=== PATIENT | male | born 1975 | race Two or more races ===

== ENCOUNTER 2020-02-27 04:26 | Inpatient (IN) | payer OTHER ==
[~2020-02-27] VITALS: Ht 175.3 cm; Wt 99.0 kg
[2020-02-27 07:52] LABS: Basophils # (auto) 0.1 10 ^3/uL (0-0.2); Basophils % (auto) 0.8 % (0.0-2.0); Eosinophils # (auto) 0.1 10 ^3/uL (0-0.8); Eosinophils % (auto) 1.1 % (0.0-7.0); Hematocrit 46.5 % (41.0-53.0); Hemoglobin 15.7 g/dL (13.5-17.5); Lymphocytes # (auto) 2.3 10 ^3/uL (0.4-5.4); Lymphocytes % (auto) 31.3 % (10.0-50.0); Mean Corpuscular Hemoglobin 29.4 pg (28.0-32.0); Mean Corpuscular Hgb Conc. 33.9 g/dL (32.0-36.0); Mean Corpuscular Volume 86.7 fL (80.0-100.0); Monocytes # (auto) 0.4 10 ^3/uL (0-1.3); Monocytes % (auto) 5.8 % (0.0-12.0); Neutrophils # (auto) 4.4 10 ^3/uL (1.6-8.6); Platelet Count (auto) 242 10^3/uL (140-450); Red Blood Cells 5.36 10^6/uL (4.5-5.90); Red Cell Distribution Width 14.4 % (11.8-14.3); White Blood Cell 7.2 10^3/uL (4.4-10.8)
[2020-02-27] MEDS ORDERED: ASPirin 81 mg TAB PO ONE (08:00)
[2020-02-27 08:12] LABS: Albumin 3.8 g/dL (3.4-5.0); Calcium 8.4 mg/dL (8.5-10.1); Magnesium 2.4 mg/dL (1.6-2.6); Potassium 4.1 mmol/L (3.5-5.1)
[2020-02-27 08:14] LABS: BUN/Creatinine Ratio 16.7
[2020-02-27 08:20] LABS: Bilirubin, Total 0.9 mg/dL (0.2-1.0)
[2020-02-27] MEDS ORDERED: HYDROcodone-ACET 5/325MG TAB PO PRN (15:00)
[2020-02-27] MEDS ORDERED: MORPHINE SULF INJ 2 MG/ML SYRINGE 1ML IV PRN ×2 (15:00)
[2020-02-27] MEDS ORDERED: NITROGLYCERIN 0.4 MG SL TAB SL PRN (15:00)
[2020-02-27] MEDS ORDERED: ONDANSETRON HCL 4 MG/2 ML VIAL IV PRN (15:00)
[2020-02-27] MEDS ORDERED: ACETAMINOPHEN 500 MG TAB PO PRN (15:00)
[2020-02-27 19:45] VITALS: BP 128/84
--- NOTE | 2020-02-27 19:45 | NUR ---
Telemetry admit from [facility] admitted to Telemetry unit. Patient oriented to DONA YEUNG RN primary RN, unit, room, bed, and unit policies regarding patient care and visiting hours. Patient now on continuous telemetry monitoring, tele box #34 and telemetry reading on arrival to unit is sinus bradycardia. Patient weighed by bedscale and encouraged to call if they need something. Safety measures in place bed in lowest position, side rails x2, up, and call light within reach. All questions and concerns addressed, patient verbalized understanding.
[2020-02-27 23:22] VITALS: BP 128/84
[2020-02-28 05:42] VITALS: BP 115/60
--- NOTE | 2020-02-28 08:00 | NUR ---
OPENING NOTE ASSUMED CARE OF PT. PT AWAKE AND ALERT, POC DISCUSSED WITH PT. ALL QUESTIONS AND CONCERNS ADDRESSED AT THIS TIME. BED IN LOWEST POSITION, BED RAILS RAISED X2, CALL LIGHT WITHIN REACH. ADVISED PT TO CALL FOR ASSISTANCE. WILL CONTINUE TO MONITOR Q1 AND PRN.
[2020-02-28] MEDS ORDERED: ADENOSINE 79 MG in GIVE UN-DILUTED 0 ML IV STA (08:21)
[2020-02-28 09:00] VITALS: BP_SYST 117; BP_SYST 137; BP_DIAS 72; BP_DIAS 80
--- NOTE | 2020-02-28 10:23 | NUR ---
LINDY GUZMAN ADMIN PROG COORD AT BEDSIDE. DISCUSSED STRESS TEST PROCEDURE AND POC WITH PT.
[2020-02-28] MEDS: FAMOTIDINE 20 MG TAB PO SCH (10:25)
--- NOTE | 2020-02-28 10:46 | NUR ---
IV insertion IV access obtained, via clean sterile technique by inserting a 22 gauge catheter to the right forearm after 1 attempt. IV secured properly. No trauma to site. Patient tolerated well.
[2020-02-28 10:59] LABS: Cholesterol 186 mg/dL (< 200); HDL Cholesterol 38 mg/dL (40-59); LDL Cholesterol 135 mg/dL (< 100); Triglycerides 147 mg/dL (< 150)
[2020-02-28 12:21] VITALS: BP 131/74
[2020-02-28] MEDS ORDERED: ASPirin-EC 81 mg tab PO ONE (12:30)
[2020-02-28 13:00] VITALS: BP 123/83
[2020-02-28] MEDS ORDERED: MULTTAB61 PO (17:58)
[2020-02-28] MEDS ORDERED: ACET1CAP14 PO (17:58)
[2020-02-28] MEDS ORDERED: POM PO (17:59)
--- NOTE | 2020-02-28 19:15 | NUR ---
Opening Shift Note Assumed care of patient, awake, alert oriented x4, on room air with even and unlabored respirations, no S/S of distress/SOB or pain. Patient able to ambulate independently, bed in lowest locked position, side rails up x2, and call light within reach. Instructed on POC and to call for assist PRN, will continue to monitor for changes Q1hr and PRN.
--- NOTE | 2020-02-28 19:35 | NUR ---
ENDORSED CARE TO NIGHT RN. HOSPITALIST PAGED PATIENT AGITATED REFUSED ATIVAN, SITTER AT BEDSIDE.
[2020-02-28] MEDS: ATORVASTATIN 20 MG TAB PO SCH (21:39)
[2020-02-28 22:00] VITALS: BP 126/80
[2020-02-29 05:00] VITALS: BP 108/78
--- NOTE | 2020-02-29 08:12 | NUR ---
Opening Shift Note Assumed care of patient, awake and alert. No S/S of distress/SOB or pain. Instructed on POC and to call for assist PRN, will continue to monitor for changes Q1hr and PRN. Possible discharge today.
[2020-02-29] MEDS: ASPirin-EC 81 mg tab PO SCH (08:42)
[2020-02-29] MEDS: FAMOTIDINE 20 MG TAB PO SCH (08:42)
[2020-02-29 09:00] VITALS: BP 124/71
[2020-02-29] MEDS ORDERED: SODIUM CHLORIDE 0.9% 1,000 ML IV ONE (09:30)
--- NOTE | 2020-02-29 09:30 | NUR ---
Provider at bedside Yajaira Smith at bedside. Notified pt of heart cath later today. Ordered fluids NS @ 75ml/hr for kidney hydration.
[2020-02-29 10:41] LABS: INR 1.07 (0.9-1.15); Partial Thromboplastin Time 28.4 sec (23.64-32.05)
[2020-02-29 10:43] LABS: Albumin 3.8 g/dL (3.4-5.0); Calcium 9.1 mg/dL (8.5-10.1); Potassium 4.2 mmol/L (3.5-5.1)
[2020-02-29 10:47] LABS: BUN/Creatinine Ratio 17.6; Bilirubin, Total 0.9 mg/dL (0.2-1.0); Total Protein 7.9 g/dL (6.4-8.2)
[2020-02-29 10:50] LABS: Basophils # (auto) 0 10 ^3/uL (0-0.2); Basophils % (auto) 0.5 % (0.0-2.0); Eosinophils # (auto) 0 10 ^3/uL (0-0.8); Eosinophils % (auto) 0.6 % (0.0-7.0); Hemoglobin 15.6 g/dL (13.5-17.5); Lymphocytes # (auto) 1.9 10 ^3/uL (0.4-5.4); Lymphocytes % (auto) 25.4 % (10.0-50.0); Mean Corpuscular Hemoglobin 29.4 pg (28.0-32.0); Mean Corpuscular Hgb Conc. 33.9 g/dL (32.0-36.0); Mean Corpuscular Volume 86.7 fL (80.0-100.0); Monocytes # (auto) 0.6 10 ^3/uL (0-1.3); Monocytes % (auto) 8.4 % (0.0-12.0); Neutrophils # (auto) 4.9 10 ^3/uL (1.6-8.6); Neutrophils % (auto) 65.1 % (37.0-80.0); Nucleated Red Blood Cells % 0.1 %; Platelet Count (auto) 245 10^3/uL (140-450); Red Blood Cells 5.31 10^6/uL (4.5-5.90); Red Cell Distribution Width 14.4 % (11.8-14.3); White Blood Cell 7.5 10^3/uL (4.4-10.8)
[2020-02-29] MEDS ORDERED: IODIXANOL 320MG/ML 100ML BTL IV ONE (12:08)
[2020-02-29] MEDS ORDERED: LIDOCAINE 2%HCL (LOCAL ANESTH.) INJ 20ML MDV ONE (12:08)
--- NOTE | 2020-02-29 12:21 | NUR ---
transported to cath via hospital bed; no distress noted at time. Endorsed care to Patricia SIMPSON.
[2020-02-29] MEDS ORDERED: ANGIOMAX 250 MG VIAL IV ONE (12:35)
[2020-02-29] MEDS ORDERED: fentaNYL CITRATE 100 MCG/2 ML VL ONE (12:36)
[2020-02-29] MEDS ORDERED: MIDAZOLAM HCL 1MG/1ML-2 ML VIAL ONE (12:36)
[2020-02-29] MEDS ORDERED: VERAPAMIL 2.5MG/ML INJ 2ML VIAL IV ONE (12:36)
[2020-02-29] MEDS ORDERED: SODIUM CHL 0.9% 0 ML ONE (12:36)
[2020-02-29] MEDS ORDERED: HEPARIN SODIUM (PORCINE) 5000 UNITS/ML 1ML VIAL ONE (12:36)
[2020-02-29 13:00] VITALS: BP 129/84
--- NOTE | 2020-02-29 14:30 | NUR ---
RETURNED FROM [facility]. RECEIVED BEDSIDE REPORT FROM JUSTIN SIMPSON. PATIENT DENIED PAIN, NO DISTRESS NOTED. BALLOON INFLATED TO 10CC PER JUSTIN, ORDERS TO DEFLATE BALLOON 2 CC EVERY 15 MINUTES. WILL CONTINUE TO MONITOR.
--- NOTE | 2020-02-29 15:15 | NUR ---
DEFLATED BALLOON TO RIGHT WRIST 2CC, PATIENT TOLERATED WELL, DENIED PAIN, NO SIGNS OF BLEEDING. WILL CONTINUE TO MONITOR.
--- NOTE | 2020-02-29 15:30 | NUR ---
DEFLATED BALLOON TO RIGHT WRIST 2CC, PATIENT TOLERATED WELL, DENIED PAIN, NO SIGNS OF BLEEDING. WILL CONTINUE TO MONITOR.
--- NOTE | 2020-02-29 15:45 | NUR ---
DEFLATED BALLOON TO RIGHT WRIST 2CC, PATIENT TOLERATED WELL, DENIED PAIN, NO SIGNS OF BLEEDING. WILL CONTINUE TO MONITOR.
--- NOTE | 2020-02-29 16:00 | NUR ---
DEFLATED BALLOON TO RIGHT WRIST 2CC, PATIENT TOLERATED WELL, DENIED PAIN, NO SIGNS OF BLEEDING. WILL CONTINUE TO MONITOR.
[2020-02-29 16:55] VITALS: BP 123/77
--- NOTE | 2020-02-29 19:07 | NUR ---
REMOVED RIGHT BALLON PRESSURE BAND ,TOLERATED WELL. ENDORSED CARE TO NIGHT RN.
--- NOTE | 2020-02-29 19:10 | NUR ---
Opening Shift Note Assumed care of patient, awake, alert and oriented x4, on room air with even and unlabored respirations, no S/S of distress/SOB or pain. Patient able to ambulate independently, bed in lowest locked position, side rails up x2, and call light within reach. Instructed on POC and to call for assist PRN, will continue to monitor for changes Q1hr and PRN.
[2020-02-29] MEDS: ATORVASTATIN 20 MG TAB PO SCH (21:32)
[2020-02-29 22:00] VITALS: BP 124/77
[2020-03-01 05:00] VITALS: BP 106/58
[2020-03-01 09:11] VITALS: BP 113/69
[2020-03-01] MEDS: ASPirin-EC 81 mg tab PO SCH (10:00)
[2020-03-01] MEDS: FAMOTIDINE 20 MG TAB PO SCH (10:00)
[2020-03-01 12:59] VITALS: BP 117/72
--- NOTE | 2020-03-01 17:16 | NUR ---
Discharge instructions given as ordered. Encourage to follow up with PMD as instructed. All questions and concerns addressed. Patient verbalized understanding. IV removed with catheter intact, pressure dressing applied. Telemetry unit returned to ICU. Patient ambulated with all personal belongings, accompanied by staff and family member. No distress noted at time of departure.
== END 2020-03-01 17:30 | disposition home or self-care (01) | DRG 287 ==
LOC: ER 04:26 → TELE 04:27 → TELE-CENTR 19:45
PROVIDERS: ADMIT Nurse Practitioner Acute Care; ATTEND Internal Medicine
PROC: 4A023N7 Measurement of Cardiac Sampling and Pressure, Left Heart, Percutaneous Approach (ICD-10-PCS; principal; 2020-02-29)
PROC: B211YZZ Fluoroscopy of Multiple Coronary Arteries using Other Contrast (ICD-10-PCS; 2020-02-29)
PROC: B215YZZ Fluoroscopy of Left Heart using Other Contrast (ICD-10-PCS; 2020-02-29)
DX: R07.89 Other chest pain (principal); E66.9 Obesity, unspecified; E78.00 Pure hypercholesterolemia, unspecified; E78.5 Hyperlipidemia, unspecified; Z82.3 Family history of stroke; Z82.49 Family history of ischemic heart disease and other diseases of the circulatory system; Z90.49 Acquired absence of other specified parts of digestive tract; X58.XXXA Exposure to other specified factors, initial encounter; Y93.89 Activity, other specified; Y92.89 Other specified places as the place of occurrence of the external cause; Y99.8 Other external cause status; Z68.32 Body mass index [BMI] 32.0-32.9, adult; R00.1 Bradycardia, unspecified
CPT/HCPCS: 36415; 71046; 80053; 80061; 82565; 83735; 84484; 85025; 85610; 85652; 85730; 86141; 93005; 93017; 93306; 99152; 99153; C1887; G0378; J0153; J2250; Q9967

== ENCOUNTER 2024-12-24 17:42 | Inpatient (IN) | payer OTHER ==
[~2024-12-24] VITALS: Ht 175.3 cm; Wt 110.8 kg
[~2024-12-24 17:42] MED LIST: ACET1CAP14 PO; MULT-1018 PO; POM PO
--- NOTE | 2024-12-24 18:28 | ED.PDOC ---
GI ASSESSMENT HPI Comments 49-year-old male brought in by family complaining of bloody stool for the past 3 days. Patient denies abdominal or rectal pain. He notes a moderate amount of bright red blood in the toilet after having bowel movements. He denies any acute bleeding outside of bowel movements. He denies fever, nausea, vomiting, fatigue, weakness, syncope or shortness of breath. States he has a history of similar symptoms in the past which were much less severe and only lasted a day. Chief Complaint: GI Bleed Time Seen by MD: 18:10 Reviewed Notes: Nurses Notes, Medications, Allergies Allergies: Coded Allergies: NO KNOWN ALLERGIES (Unverified , 02/27/20) Home Meds Reported Medications Patients Own Medication (PATIENTS OWN MEDICATION) ., 10 MG PO DAILY PTS OWN MED-OBTAIN FROM PT AND SEND TO RX DRUG: "CHOLESTEROL MED" TAB FREQ: 10 MG PO DAILY RX# EXP: DATE DISP: TECH: RPH: 02/28/20 Multiple Vitamin (Multivitamins) Tab, 1 TAB PO DAILY, #90 TAB 3 Refills 02/28/20 Acetaminophen (Tylenol) 325 Mg Cap, 325 MG PO PRN PRN for MILD PAIN (1-3 PAIN SCALE), CAP 02/28/20 Information Source: Patient Mode of Arrival: Ambulatory Timing: Came on: Suddenly Duration: Since onset Prehospital treatment: None Quality: None Vomitus: None Stool: Blood Streaked Severity: Moderate Recent: None Recent Hx of: None Pain Location: None Associated sign and symptoms: Hematochezia, Blood in Stool Past Medical History PAST MEDICAL HISTORY: High Lipids Surgical History: Appendectomy Family History Family History: Reviewed,noncontributory to illness, Unknown Social History Smoker: Non-Smoker Alcohol: Denies ETOH Use Drugs: Denies Drug Use Lives In: Home Constitutional: denies: chills, diaphoresis, fatigue, fever, malaise, sweats, weakness, others EENTM: denies: blurred vision, double vision, ear bleeding, ear discharge, ear drainage, ear pain, ear ringing, eye pain, eye redness, hearing loss, mouth pain, mouth swelling, nasal discharge, nose bleeding, nose congestion, nose pain, photophobia, tearing, throat pain, throat swelling, voice changes, others Respiratory: denies: cough, hemoptysis, orthopnea, SOB at rest, shortness of breath, SOB with excertion, stridor, wheezing, others Cardiovascular: denies: chest pain, dizzy spells, diaphoresis, Dyspnea on exertion, edema, irregular heart beat, left arm pain, lightheadedness, palpitations, PND, syncope, others Gastrointestinal: reports: blood streaked bowels; denies: abdomen distended, abdominal pain, constipated, diarrhea, dysphagia, difficulty swallowing, hematemesis, melena, nausea, poor appetite, poor fluid intake, rectal bleeding, rectal pain, vomiting, others Genitourinary: denies: burning, dysuria, flank pain, frequency, hematuria, incontinence, penile discharge, penile sore, pain, testicle pain, testicle swelling, urgency, others Neurological: denies: dizziness, fainting, headache, left sided numbness, left sided weakness, numbness, paresthesia, pre-existing deficit, right sided numbness, right sided weakness, seizure, speech problems, tingling, tremors, weakness, others Musculoskeletal: denies: back pain, gout, joint pain, joint swelling, muscle pain, muscle stiffness, neck pain, others Integumetry: denies: bruises, change in color, change in hair/nails, dryness, laceration, lesions, lumps, rash, wounds, others Allergic/Immunocompromised: denies: Difficulty Healing, Frequent Infections, Hives, Itching, others Hematologic/Lymphatic: denies: anemia, blood clots, easy bleeding, easy bruising, swollen glands, others Endocrine: denies: excessive hunger, excessive sweating, excessive thirst, excessive urination, flushing, intolerance to cold, intolerance to heat, unexplained weight gain, unexplained weight loss, others Psychiatric: denies: anxiety, bipolar disorder, depression, hopeless, panic disorder, schizophrenia, sleepless, suicidal, others All Other Systems: Reviewed and Negative Physical Exam General Appearance: No Apparent Distress HEENT: Other (Pupils and face symmetric. Moist mucous membranes) Neck: Full Range of Motion, Normal Inspection Respiratory: Lungs Clear, No Accessory Muscle Use, No Respiratory Distress, Normal Breath Sounds Cardiovascular: No Edema, No JVD, Regular Rate/Rhythm Breast Exam: Deferred Gastrointestinal: Non Tender, Soft Genitalia: Deferred Pelvic: Deferred Rectal: Deferred Extremities: Normal inspection, Normal range of motion, Non-tender, No pedal edema Musculoskeletal : Apperance: Normal Neurologic: Alert (Oriented x4), Normal Affect, Normal Mood, Other (Ambulatory without difficulty) Cerebellar Function: NOT DONE Reflexes: NOT DONE Skin: Dry, Normal Color, Warm Lymphatic: NOT DONE Was a procedure done? Was a procedure done?: No GI differential Dx Differential Diagnosis: Diverticular disease, Gastritis/PUD, Gastroenteritis, GI hemorrhage, Inflammatory BD, Ischemic Bowel, Anemia, Stress Ulcer, Other (Coagulopathy, among others) X-Ray, Labs, Meds, VS Vital Signs Date Time Temp Pulse Resp B/P (MAP) Pulse Ox O2 Delivery O2 Flow Rate FiO2 12/24/24 17:51 Room Air 12/24/24 17:51 98.4 67 20 149/97 (114) 99 98.4 12/24/24 17:51 98.4 67 20 149/97 (114) 99 98.4 Lab Test 12/24/24 19:47 12/24/24 18:45 Range/Units Urine Color Pending Urine Clarity Pending Urine pH Pending Urine Specific [place] Pending Urine Protein Pending Urine Ketones Pending Urine Blood Pending Urine Nitrite Pending Urine Bilirubin Pending Urine Urobilinogen Pending Urine Leukocyte Esterase Pending Urine RBC Pending Urine Microscopic WBC Pending Urine Squamous Epithelial Cells Pending Urine Bacteria Pending Urine Glucose Pending White Blood Count 8.2 4.4-10.8 10^3/uL Red Blood Count 5.37 4.5-5.90 10^6/uL Hemoglobin 15.8 13.5-17.5 g/dL Hematocrit 46.3 41.0-53.0 % Mean Corpuscular Volume 86.1 80.0-100.0 fL Mean Corpuscular Hemoglobin 29.3 28.0-32.0 pg Mean Corpuscular Hemoglobin Concent 34.1 32.0-36.0 g/dL Red Cell Distribution Width 14.2 11.8-14.3 % Platelet Count 247 140-450 10^3/uL Mean Platelet Volume 9.0 6.9-10.8 fL Neutrophils (%) (Auto) 54.3 37.0-80.0 % Lymphocytes (%) (Auto) 34.9 10.0-50.0 % Monocytes (%) (Auto) 9.1 0.0-12.0 % Eosinophils (%) (Auto) 1.3 0.0-7.0 % Basophils (%) (Auto) 0.4 0.0-2.0 % Neutrophils # (Auto) 4.5 1.6-8.6 10 ^3/uL Lymphocytes # (Auto) 2.9 0.4-5.4 10 ^3/uL Monocytes # (Auto) 0.7 0-1.3 10 ^3/uL Eosinophils # (Auto) 0.1 0-0.8 10 ^3/uL Basophils # (Auto) 0 0-0.2 10 ^3/uL Nucleated Red Blood Cells 0.4 % Prothrombin Time 10.7 9.3-11.8 sec Prothrombin Time INR 1.01 0.9-1.15 Activated Partial Thromboplast Time 27.8 24.5-34.5 SEC Sodium Level 142 136-145 mmol/L Potassium Level 4.4 3.5-5.1 mmol/L Chloride Level 109 H 98-107 mmol/L Carbon Dioxide Level 27 20-31 mmol/L Anion Gap 6 5-15 Blood Urea Nitrogen 18 9-23 mg/dL Creatinine 0.98 0.700-1.30 mg/dL Glomerular Filtration Rate Calc 96 >90 mL/min BUN/Creatinine Ratio 18.4 10.0-20.0 Serum Glucose 76 74-106 mg/dL Calcium Level 9.6 8.7-10.4 mg/dL Total Bilirubin 0.5 0.2-1.0 mg/dL Aspartate Amino Transferase (AST) 13 13-40 U/L Alanine Aminotransferase (ALT) 24 7-40 U/L Alkaline Phosphatase 90 46-116 U/L Total Protein 7.5 5.7-8.2 g/dL Albumin 4.4 3.2-4.8 g/dL Current Medications Medications (Trade) Dose Ordered Sig/Edgardo Route Start Time Stop Time Status Last Admin Pantoprazole Sodium (Protonix) 40 mg ONCE ONCE IV 12/24/24 18:30 12/24/24 18:31 DC 12/24/24 19:57 PROCEDURE(s): ABPL - CT AB PEL WO CON-NO ORAL OR IV REASON: bloody stool ORDER NUMBER(s): [id number], ACCESSION NUMBER(s): [id number] Procedure: CT CT AB PEL WO CON-NO ORAL OR IV 12/24/2024 06:35 PM Indication: bloody stool Comparison Study: None Technique: Axial images were obtained and reformatted in coronal and sagittal planes. All CT scans at this medical facility are performed using dose modulation techniques as appropriate to a performed exam including the following: Automated exposure control was utilized; adjustment of the MA and/or KV according to patient size; and use of iterative reconstruction technique. CT Dose: CTDI volume is 22.89 mGy. Dose-length product is 1363.02 mGy*cm FINDINGS: Lower Chest: Unremarkable. Hepatobiliary: Unremarkable. Spleen: Unremarkable. Pancreas: Unremarkable. Adrenal Glands: Unremarkable. tract: The kidneys are normal in size bilaterally without hydronephrosis or nephrolithiasis. The urinary bladder is unremarkable. GI tract: The stomach is grossly normal in appearance. No evidence of small bowel obstruction. Few colonic diverticular noted with no evidence of diverticulitis. The appendix is not visualized. No inflammatory change is noted in the right lower quadrant. Lymphatics: No mesenteric, retroperitoneal or periportal lymphadenopathy. Vasculature: The abdominal aorta is normal in caliber. Pelvic Organs: Prostate is mildly enlarged. Bones/soft tissues: No acute abnormality. Other: None. IMPRESSION: 1. No CT evidence of acute abnormality in the abdomen and pelvis. Specifically, no evidence of colitis or proctitis. Few colonic diverticula are seen with no evidence of diverticulitis. X-Ray, Labs, Meds, VS Comment 49-year-old male with a history of dyslipidemia complaining of blood in his stool for the past 3 days Vitals remarkable for BP 149/97 Exam unremarkable Rhythm strip independently interpreted by me: Sinus rhythm, rate 67, no ectopy. CT abdomen and pelvis: IMPRESSION: 1. No CT evidence of acute abnormality in the abdomen and pelvis. Specifically, no evidence of colitis or proctitis. Few colonic diverticula are seen with no evidence of diverticulitis. CBC, CMP and coag panel unremarkable for any abnormality of acute significance Patient treated with the following in the ED: Protonix 40 mg IV On re-evaluation, patient is not currently bleeding and is otherwise hemodynamically stable. Plan is to admit the patient for GI evaluation. Time of 1ST Reevaluation: 18:40 Reevaluation 1ST: Unchanged Patient Education/Counseling: Diagnosis, Treatment, Prognosis Family Education/Counseling: No Family Present Departure 1 Departure Time of Disposition: 20:22 Impression: Primary Impression: GI bleed Qualified Codes: K92.2 - Gastrointestinal hemorrhage, unspecified Additional Impression: Diverticulosis Disposition: ADMITTED INPATIENT Admit to: Med Surg Condition: Guarded Critical Care Note Critical Care Time?: No Stability Stability form required: No Heart Score Heart Score: Heart Score Response (Comments) Value History N/A 0 EKG N/A 0 Age N/A 0 Risk Factors N/A 0 Troponin N/A 0 Total 0 I personally scribed for MELIDA YUN MD ([email or web address]) on 12/24/24 at 18:28. Electronically submitted by Carter Augustin ([email or web address]). MELIDA YUN MD Dec 24, 2024 18:28
--- NOTE | 2024-12-24 19:29 | DVH ---
Procedure: CT CT AB PEL WO CON-NO ORAL OR IV 12/24/2024 06:35 PM Indication: bloody stool Comparison Study: None Technique: Axial images were obtained and reformatted in coronal and sagittal planes. All CT scans at this medical facility are performed using dose modulation techniques as appropriate to a performed e xam including the following: Automated exposure control was utilized; adjustment of the MA and/or KV according to patient size; and use of iterative reconstruction technique. CT Dose: CTDI volume is 22. 89 mGy. Dose-length product is 1363.02 mGy*cm FINDINGS: Lower Chest: Unremarkable. Hepatobiliary: Unremarkable. Spleen: Unremarkable. Pancreas: Unremarkable. Adrenal Glands: Unremarkable. tract: The kidneys are normal in size bilaterally without hydronephrosis or nephrolithiasis. The u rinary bladder is unremarkable. GI tract: The stomach is grossly normal in appearance. No evidence of small bowel obstruction. Few co lonic diverticular noted with no evidence of diverticulitis. The appendix is not visualized. No infla mmatory change is noted in the right lower quadrant. Lymphatics: No mesenteric, retroperitoneal or periportal lymphadenopathy. Vasculature: The abdominal aorta is normal in caliber. Pelvic Organs: Prostate is mildly enlarged. Bones/soft tissues: No acute abnormality. Other: None. IMPRESSION: 1. No CT evidence of acute abnormality in the abdomen and pelvis. Specifically, no evidence of colit is or proctitis. Few colonic diverticula are seen with no evidence of diverticulitis.
[2024-12-24 19:31] LABS: Basophils # (auto) 0 10 ^3/uL (0-0.2); Basophils % (auto) 0.4 % (0.0-2.0); Eosinophils # (auto) 0.1 10 ^3/uL (0-0.8); Eosinophils % (auto) 1.3 % (0.0-7.0); Hematocrit 46.3 % (41.0-53.0); Hemoglobin 15.8 g/dL (13.5-17.5); Lymphocytes # (auto) 2.9 10 ^3/uL (0.4-5.4); Lymphocytes % (auto) 34.9 % (10.0-50.0); Mean Corpuscular Hemoglobin 29.3 pg (28.0-32.0); Mean Corpuscular Hgb Conc. 34.1 g/dL (32.0-36.0); Mean Corpuscular Volume 86.1 fL (80.0-100.0); Monocytes # (auto) 0.7 10 ^3/uL (0-1.3); Monocytes % (auto) 9.1 % (0.0-12.0); Neutrophils # (auto) 4.5 10 ^3/uL (1.6-8.6); Neutrophils % (auto) 54.3 % (37.0-80.0); Nucleated Red Blood Cells % 0.4 %; Platelet Count (auto) 247 10^3/uL (140-450); Red Blood Cells 5.37 10^6/uL (4.5-5.90); Red Cell Distribution Width 14.2 % (11.8-14.3); White Blood Cell 8.2 10^3/uL (4.4-10.8)
[2024-12-24 19:48] LABS: Alanine Aminotransferase 24 U/L (7-40); Albumin 4.4 g/dL (3.2-4.8); Alkaline Phosphatase 90 U/L (46-116); Anion Gap 6 (5-15); Aspartate Aminotransferase 13 U/L (13-40); BUN/Creatinine Ratio 18.4 (10.0-20.0); Bilirubin, Total 0.5 mg/dL (0.2-1.0); Blood Urea Nitrogen 18 mg/dL (9-23); Calcium 9.6 mg/dL (8.7-10.4); Carbon Dioxide 27 mmol/L (20-31); Glucose 76 mg/dL (74-106); INR 1.01 (0.9-1.15); Partial Thromboplastin Time 27.8 SEC (24.5-34.5); Potassium 4.4 mmol/L (3.5-5.1); Prothrombin Time 10.7 sec (9.3-11.8); Sodium 142 mmol/L (136-145); Total Protein 7.5 g/dL (5.7-8.2)
[2024-12-24 19:52] LABS: Chloride 109 mmol/L (98-107)
[2024-12-24] MEDS: PANTOPRAZOLE 40 MG/10 ML VIAL INJ IV ONE (19:57)
[2024-12-24 20:13] LABS: Urine Bacteria None Seen /hpf (None Seen)
[2024-12-24 20:33] LABS: Urine Blood Negative /uL (Negative); Urine Clarity Clear (Clear); Urine Color Light-Yellow (Yellow); Urine Protein, UAD Negative (Negative); Urine Specific Gravity 1.026 (1.001-1.035); Urine Squamous Epithelial Cell None Seen /hpf (<5); Urine Urobilinogen Normal (Negative); Urine WBC < 1 /HPF (0-3)
[2024-12-24] MEDS ORDERED: ONDANSETRON HCL 4 MG/2 ML VIAL IV PRN (21:00)
[2024-12-25] VITALS (8 sets, daily range): BP systolic 98–125; BP diastolic 61–82; PULSE 50–70; RESP 17–20; TEMP 97.4–97.6; O2SAT 95–100
--- NOTE | 2024-12-25 04:55 | DVHHP2 ---
History of Present Illness Reason for Visit: GI bleed History of Present Illness 49-year-old male presents for evaluation of GI bleed. Patient reports a three day history of noticing bright red bloody stools. Denies abdominal pain, nausea or vomiting. No history of hemorrhoids. Denies shortness or breath. No other acute complaints reported. Past Medical History Dyslipidemia Past Surgical History Appendectomy Family History Noncontributory Smoke: No ALCOHOL: none Drugs: None Lives: with Family Review of Systems Review of Systems Review of systems are currently negative otherwise addressed in HPI. Allergies: Coded Allergies: NO KNOWN ALLERGIES (Unverified , 02/27/20) Medications Current Medications Medications Dose Ordered Sig/Edgardo Route Start Time Stop Time Status Last Admin Dose Admin Pantoprazole Sodium 40 mg DAILY IV 12/25/24 10:00 Ondansetron HCl 4 mg Q4HP PRN IV 12/24/24 21:00 Exam Vital Signs Vital Signs Date Time Temp Pulse Resp B/P (MAP) Pulse Ox O2 Delivery O2 Flow Rate FiO2 12/25/24 01:00 97.6 56 17 125/81 (96) 95 97.6 12/25/24 00:06 Room Air* 0 21 Exam Gen: 49-year-old male in no apparent distress Skin: Warm, dry, normal color and texture, no rash. HEENT: Normocephalic atraumatic, mucous membranes moist and pink. Neck: Cervical and supraclavicular nodes normal without enlargement, trachea is midline, thyroid gland is normal without masses. Pulmonary: Clear to auscultation and percussion bilaterally. Cardiac: Regular rate and rhythm. No murmur Abdomen: Soft, nontender, nondistended, bowel sounds present all 4 quadrants, no guarding, no rigidity, no organomegaly. Extremities: No cyanosis, clubbing, no edema Neuro: Cranial nerves II through XII grossly intact, normal affect and speech, no focal motor deficits. Labs/Xrays AGE / SEX: 49 / M ADM STATUS: REG ER SERVICE 18 ORDERING PHYSICIAN: MELIDA YUN MD PROCEDURE(s): ABPL - CT AB PEL WO CON-NO ORAL OR IV REASON: bloody stool ORDER NUMBER(s): [id number], ACCESSION NUMBER(s): [id number] Procedure: CT CT AB PEL WO CON-NO ORAL OR IV 12/24/2024 06:35 PM Indication: bloody stool Comparison Study: None Technique: Axial images were obtained and reformatted in coronal and sagittal planes. All CT scans at this medical facility are performed using dose modulatio n techniques as appropriate to a performed exam including the following: Automated exposure control was utilized; adjustment of the MA and/or KV according to patient size; and use of iterative reconstruction technique. CT Dose: CTDI volume is 22.89 mGy. Dose-length product is 1363.02 mGy*cm FINDINGS: Lower Chest: Unremarkable. Hepatobiliary: Unremarkable. Spleen: Unremarkable. Pancreas: Unremarkable. Adrenal Glands: Unremarkable. tract: The kidneys are normal in size bilaterally without hydronephrosis or nephrolithiasis. The urinary bladder is unremarkable. GI tract: The stomach is grossly normal in appearance. No evidence of small bowel obstruction. Few colonic diverticular noted with no evidence of diverticulitis. The appendix is not visualized. No inflammatory change is noted in the right lower quadrant. Lymphatics: No mesenteric, retroperitoneal or periportal lymphadenopathy. Vasculature: The abdominal aorta is normal in caliber. Pelvic Organs: Prostate is mildly enlarged. Bones/soft tissues: No acute abnormality. Other: None. IMPRESSION: 1. No CT evidence of acute abnormality in the abdomen and pelvis. Specifically, no evidence of colitis or proctitis. Few colonic diverticula are seen with no evidence of diverticulitis. Labs Test 12/24/24 22:50 12/24/24 19:47 12/24/24 18:45 Range/Units Stool Occult Blood Positive Negative Stool Occult Blood Sample #3 Negative Urine Color Light-yellow Yellow Urine Clarity Clear Clear Urine pH 5.0 5.0-9.0 Urine Specific [place] 1.026 1.001-1.035 Urine Protein Negative Negative Urine Ketones Negative Negative Urine Blood Negative Negative /uL Urine Nitrite Negative Negative Urine Bilirubin Negative Negative Urine Urobilinogen Normal Negative mg/dL Urine Leukocyte Esterase Negative Negative /uL Urine RBC <1 0 - 3 /hpf Urine Microscopic WBC < 1 0-3 /HPF Urine Squamous Epithelial Cells None seen <5 /hpf Urine Bacteria None seen None Seen /hpf Urine Glucose Normal Normal mg/dL White Blood Count 8.2 4.4-10.8 10^3/uL Red Blood Count 5.37 4.5-5.90 10^6/uL Hemoglobin 15.8 13.5-17.5 g/dL Hematocrit 46.3 41.0-53.0 % Mean Corpuscular Volume 86.1 80.0-100.0 fL Mean Corpuscular Hemoglobin 29.3 28.0-32.0 pg Mean Corpuscular Hemoglobin Concent 34.1 32.0-36.0 g/dL Red Cell Distribution Width 14.2 11.8-14.3 % Platelet Count 247 140-450 10^3/uL Mean Platelet Volume 9.0 6.9-10.8 fL Neutrophils (%) (Auto) 54.3 37.0-80.0 % Lymphocytes (%) (Auto) 34.9 10.0-50.0 % Monocytes (%) (Auto) 9.1 0.0-12.0 % Eosinophils (%) (Auto) 1.3 0.0-7.0 % Basophils (%) (Auto) 0.4 0.0-2.0 % Neutrophils # (Auto) 4.5 1.6-8.6 10 ^3/uL Lymphocytes # (Auto) 2.9 0.4-5.4 10 ^3/uL Monocytes # (Auto) 0.7 0-1.3 10 ^3/uL Eosinophils # (Auto) 0.1 0-0.8 10 ^3/uL Basophils # (Auto) 0 0-0.2 10 ^3/uL Nucleated Red Blood Cells 0.4 % Prothrombin Time 10.7 9.3-11.8 sec Prothrombin Time INR 1.01 0.9-1.15 Activated Partial Thromboplast Time 27.8 24.5-34.5 SEC Sodium Level 142 136-145 mmol/L Potassium Level 4.4 3.5-5.1 mmol/L Chloride Level 109 H 98-107 mmol/L Carbon Dioxide Level 27 20-31 mmol/L Anion Gap 6 5-15 Blood Urea Nitrogen 18 9-23 mg/dL Creatinine 0.98 0.700-1.30 mg/dL Glomerular Filtration Rate Calc 96 >90 mL/min BUN/Creatinine Ratio 18.4 10.0-20.0 Serum Glucose 76 74-106 mg/dL Calcium Level 9.6 8.7-10.4 mg/dL Total Bilirubin 0.5 0.2-1.0 mg/dL Aspartate Amino Transferase (AST) 13 13-40 U/L Alanine Aminotransferase (ALT) 24 7-40 U/L Alkaline Phosphatase 90 46-116 U/L Total Protein 7.5 5.7-8.2 g/dL Albumin 4.4 3.2-4.8 g/dL Assessment/Plan Assessment/Plan Assessment GI bleed Plan Admit the patient to [facility] to the hospitalist GI consultation Clear liquid diet Continue treatment per orders. Plan discussed with: Patient My Orders Orders - DONALD BENITEZ Procedure Category Date Status Time Pantoprazole PHA 12/25/24 In Process (Protonix) 10:00 * Gi Dvh Opener CONS 12/24/24 Transmitted 20:57 Admit ADMIT 12/24/24 Transmitted 20:57 Ondansetron Hcl PHA 12/24/24 In Process (Zofran) 21:00 Complete Blood Count LAB 12/25/24 Logged 04:00 Condition: Stable MILLIE 12/24/24 In Process 20:57 Clear Liq Diet DIET 12/25/24 Transmitted Breakfast Bedrest With Bathroom MILLIE 12/24/24 In Process Privileg 20:57 Date of Service: Dec 24, 2024 Billing Provider: DONALD BENITEZ Common Visit Codes: [id number] INP/OBS CARE (MOD) DONALD BENITEZ Dec 25, 2024 04:55
[2024-12-25 05:10] LABS: Basophils # (auto) 0 10 ^3/uL (0-0.2); Basophils % (auto) 0.6 % (0.0-2.0); Eosinophils # (auto) 0.1 10 ^3/uL (0-0.8); Eosinophils % (auto) 1.3 % (0.0-7.0); Hematocrit 43.1 % (41.0-53.0); Hemoglobin 15.1 g/dL (13.5-17.5); Lymphocytes # (auto) 2.7 10 ^3/uL (0.4-5.4); Lymphocytes % (auto) 35.4 % (10.0-50.0); Mean Corpuscular Hemoglobin 29.9 pg (28.0-32.0); Mean Corpuscular Hgb Conc. 35.1 g/dL (32.0-36.0); Monocytes # (auto) 0.6 10 ^3/uL (0-1.3); Neutrophils # (auto) 4.2 10 ^3/uL (1.6-8.6); Neutrophils % (auto) 54.7 % (37.0-80.0); Nucleated Red Blood Cells % 0.2 %; Platelet Count (auto) 225 10^3/uL (140-450); Red Blood Cells 5.07 10^6/uL (4.5-5.90); Red Cell Distribution Width 14.5 % (11.8-14.3); White Blood Cell 7.6 10^3/uL (4.4-10.8)
[2024-12-25] MEDS: PANTOPRAZOLE 40 MG/10 ML VIAL INJ IV SCH (10:35)
--- NOTE | 2024-12-25 11:39 | DVHPN2 ---
Reviewed: Care Plan, H&P, Labs, Medications, Previous Orders, Radiology Changes from previous H/P or p: No Changes Objective Vitals Vital Signs Date Time Temp Pulse Resp B/P (MAP) Pulse Ox O2 Delivery O2 Flow Rate FiO2 12/25/24 08:00 70 20 97 Room Air* 0 21 12/25/24 08:00 97.4 98/61 (73) 97.4 Intake/Output Intake and Output 12/25/24 07:00 Intake Total 300 ml Balance 300 ml Intake Oral 300 ml # Voids 1 Medications Current Medications Medications Dose Ordered Sig/Edgardo Route Start Time Stop Time Status Last Admin Dose Admin Pantoprazole Sodium 40 mg DAILY IV 12/25/24 10:00 12/25/24 10:35 40 MG Ondansetron HCl 4 mg Q4HP PRN IV 12/24/24 21:00 Laboratory Results Laboratory Tests 12/24/24 18:45 12/25/24 04:26 Chemistry Test 12/24/24 18:45 Albumin 4.4 g/dL (3.2-4.8) Calcium Level 9.6 mg/dL (8.7-10.4) Total Protein 7.5 g/dL (5.7-8.2) Coagulation Test 12/24/24 18:45 Prothrombin Time 10.7 sec (9.3-11.8) Prothrombin Time INR 1.01 (0.9-1.15) Activated Partial Thromboplast Time 27.8 SEC (24.5-34.5) LFT Test 12/24/24 18:45 Alanine Aminotransferase (ALT) 24 U/L (7-40) Alkaline Phosphatase 90 U/L (46-116) Aspartate Amino Transferase (AST) 13 U/L (13-40) Total Bilirubin 0.5 mg/dL (0.2-1.0) Urinalysis Test 12/24/24 19:47 Urine Color Light-yellow (Yellow) Urine Clarity Clear (Clear) Urine pH 5.0 (5.0-9.0) Urine Specific [place] 1.026 (1.001-1.035) Urine Protein Negative (Negative) Urine Ketones Negative (Negative) Urine Blood Negative /uL (Negative) Urine Nitrite Negative (Negative) Urine Bilirubin Negative (Negative) Urine Urobilinogen Normal mg/dL (Negative) Urine Leukocyte Esterase Negative /uL (Negative) Urine RBC <1 /hpf (0 - 3) Urine Microscopic WBC < 1 /HPF (0-3) Urine Squamous Epithelial Cells None seen /hpf (<5) Urine Bacteria None seen /hpf (None Seen) Urine Glucose Normal mg/dL (Normal) Labs and/or images reviewed: Labs reviewed by me, Image(s) reviewed by me Assessment/Plan Assessment/Plan Hematochezia hemoglobin 15.0 stool occult blood positive, consult for Dr. Hernandez pantoprazole Plan discussed with: Patient Date of Service: Dec 25, 2024 Billing Provider: KATIE TA MD Common Visit Codes: [id number] INP/OBS CARE(HIGH) KATIE TA MD Dec 25, 2024 11:39
--- NOTE | 2024-12-25 18:11 | DVHINCON2 ---
Date of service: Dec 25, [address] Garcia Reason for Consultation Rectal bleeding History of Present Illness This 49-year-old male came to the emergency room with complaints of bloody stool for the last three days prior to admission. This is painless bleeding no abdominal pains no rectal pain it is copious amount of moderate right blood bright red blood Denied any constipation or diarrhea History of any unusual food ingestion Patient had a similar episode about it in month and a half ago which lasted about couple of days also but did not seek any help that time A CAT scan done which showed that there was diverticulosis but without any diverticulitis or other pathology seen.T Past Medical History Unremarkable Past Surgical History None Family History: Cerebrovascular accident (CVA) grandmother FH: cancer G8 MOTHER grandmother Hypertension G8 FATHER Family History Noncontributory Social History Denies smoking or drinking Allergies: Coded Allergies: NO KNOWN ALLERGIES (Unverified , 02/27/20) Home Meds Reported Medications Patients Own Medication (PATIENTS OWN MEDICATION) ., 10 MG PO DAILY PTS OWN MED-OBTAIN FROM PT AND SEND TO RX DRUG: "CHOLESTEROL MED" TAB FREQ: 10 MG PO DAILY RX# EXP: DATE DISP: TECH: [facility]: 02/28/20 Discontinued Reported Medications Multiple Vitamin (Multivitamins) Tab, 1 TAB PO DAILY, #90 TAB 3 Refills 02/28/20 Acetaminophen (Tylenol) 325 Mg Cap, 325 MG PO PRN PRN for MILD PAIN (1-3 PAIN SCALE), CAP 02/28/20 Current Medications Current Medications Medications (Trade) Dose Ordered Sig/Edgardo Route PRN Reason Start Time Stop Time Status Last Admin Pantoprazole Sodium (Protonix) 40 mg DAILY IV 12/25/24 10:00 12/25/24 10:35 Ondansetron HCl (Zofran) 4 mg Q4HP PRN IV NAUSEA / VOMITING 12/24/24 21:00 Review of Systems Noncontributory Vital Signs Vital Signs Date Time Temp Pulse Resp B/P (MAP) Pulse Ox O2 Delivery O2 Flow Rate FiO2 12/25/24 12:00 97.4 50 18 110/64 (79) 99 97.4 12/25/24 08:00 Room Air* 0 21 Physical Exam Originally built and nourished slightly on the obese side male in no acute distress Vitals stable HEENT examination no pallor or icterus Lungs clear Cardiovascular unremarkable Abdomen is soft no tenderness no rigidity no guarding no masses Bowel sounds normal Extremities no edema Neurological grossly intact Labs/Diagnostic Data Labs Test 12/25/24 04:26 12/24/24 22:50 12/24/24 19:47 12/24/24 18:45 Range/Units White Blood Count 7.6 4.4-10.8 10^3/uL Red Blood Count 5.07 4.5-5.90 10^6/uL Hemoglobin 15.1 13.5-17.5 g/dL Hematocrit 43.1 41.0-53.0 % Mean Corpuscular Volume 85.0 80.0-100.0 fL Mean Corpuscular Hemoglobin 29.9 28.0-32.0 pg Mean Corpuscular Hemoglobin Concent 35.1 32.0-36.0 g/dL Red Cell Distribution Width 14.5 H 11.8-14.3 % Platelet Count 225 140-450 10^3/uL Mean Platelet Volume 8.8 6.9-10.8 fL Neutrophils (%) (Auto) 54.7 37.0-80.0 % Lymphocytes (%) (Auto) 35.4 10.0-50.0 % Monocytes (%) (Auto) 8.0 0.0-12.0 % Eosinophils (%) (Auto) 1.3 0.0-7.0 % Basophils (%) (Auto) 0.6 0.0-2.0 % Neutrophils # (Auto) 4.2 1.6-8.6 10 ^3/uL Lymphocytes # (Auto) 2.7 0.4-5.4 10 ^3/uL Monocytes # (Auto) 0.6 0-1.3 10 ^3/uL Eosinophils # (Auto) 0.1 0-0.8 10 ^3/uL Basophils # (Auto) 0 0-0.2 10 ^3/uL Nucleated Red Blood Cells 0.2 % Stool Occult Blood Positive Negative Stool Occult Blood Sample #3 Negative Urine Color Light-yellow Yellow Urine Clarity Clear Clear Urine pH 5.0 5.0-9.0 Urine Specific [place] 1.026 1.001-1.035 Urine Protein Negative Negative Urine Ketones Negative Negative Urine Blood Negative Negative /uL Urine Nitrite Negative Negative Urine Bilirubin Negative Negative Urine Urobilinogen Normal Negative mg/dL Urine Leukocyte Esterase Negative Negative /uL Urine RBC <1 0 - 3 /hpf Urine Microscopic WBC < 1 0-3 /HPF Urine Squamous Epithelial Cells None seen <5 /hpf Urine Bacteria None seen None Seen /hpf Urine Glucose Normal Normal mg/dL Prothrombin Time 10.7 9.3-11.8 sec Prothrombin Time INR 1.01 0.9-1.15 Activated Partial Thromboplast Time 27.8 24.5-34.5 SEC Sodium Level 142 136-145 mmol/L Potassium Level 4.4 3.5-5.1 mmol/L Chloride Level 109 H 98-107 mmol/L Carbon Dioxide Level 27 20-31 mmol/L Anion Gap 6 5-15 Blood Urea Nitrogen 18 9-23 mg/dL Creatinine 0.98 0.700-1.30 mg/dL Glomerular Filtration Rate Calc 96 >90 mL/min BUN/Creatinine Ratio 18.4 10.0-20.0 Serum Glucose 76 74-106 mg/dL Calcium Level 9.6 8.7-10.4 mg/dL Total Bilirubin 0.5 0.2-1.0 mg/dL Aspartate Amino Transferase (AST) 13 13-40 U/L Alanine Aminotransferase (ALT) 24 7-40 U/L Alkaline Phosphatase 90 46-116 U/L Total Protein 7.5 5.7-8.2 g/dL Albumin 4.4 3.2-4.8 g/dL Assessment 49-year-old male with a rectal bleeding painless for last three four days slig htly getting better but still having some blood patient had similar episode about one and half months ago which lasted couple of days. Denied any fever chills or systemic symptoms denies any on any analgesic or NSAID use no history of any travel no diarrhea or constipation. CT scan was unremarkable except for few diverticulosis without diverticulitis Clinical impression Recurrent rectal bleeding of undetermined etiology Possibility of colonic lesions to be ruled out could be diverticula or hemorrhoids but other lesions can not be excluded especially with the recurrent bleeding Plan/Recommendation will recommend colonoscopic evaluation because of the recurrent episodes of bleeding risks benefits alternatives explained to the patient and agreeable with the will monitor the hemoglobin also Scheduled for tomorrow after bowel prep Thank you Dr. Hernandez Plan discussed with: Patient ALEXI HERNANDEZ MD Dec 25, 2024 18:11
[2024-12-25] MEDS: BISACODYL 5 MG EC TAB PO ONE (18:23)
[2024-12-25] MEDS: GOLYTELY 4L KIT PO ONE (18:23)
[2024-12-26] VITALS (10 sets, daily range): BP systolic 104–138; BP diastolic 51–87; PULSE 53–87; RESP 18–22; TEMP 97.6–98.5; O2SAT 96–100
[2024-12-26] MEDS ORDERED: LIDOCAINE 1% INJ PF 5ML AMP ONE (09:08)
[2024-12-26] MEDS ORDERED: PROPOFOL 10 MG/ML 20 ML IV ONE ×2 (09:08→09:28)
--- NOTE | 2024-12-26 10:24 | DVHOP2 ---
Operative Report DATE OF PROCEDURE: 12/26/24 INDICATIONS FOR THE PROCEDURE: Rectal bleeding PROCEDURE PERFORMED: Colonoscopy and polypectomy by hot snare and polypectomy with cold biopsy forceps POSTOPERATIVE DIAGNOSIS: Descending colon polyp 5 mm removed by cold biopsy forceps completely Sigmoid colon polyp 10 mm removed with a hot snare completely Rectal polyp 5 mm removed by cold biopsy forceps Scattered diverticulae sigmoid and descending colon Internal hemorrhoids INFORMED CONSENT: The risks and benefits and alternatives were explained to the patient and informed consent was obtained. PROCEDURE IN DETAIL: The patient was kept NPO after midnight. The procedure was done under MAC Olympus colonoscope was passed through the rectum all the way up to cecum and terminal ileum after anesthesia was given. The terminal ileum was normal Cecum, ascending colon, hepatic flexure, transverse colon, splenic flexure, descending colon, and sigmoid colon were all visualized and the findings were as follows: Findings: In the mid descending colon there was a polyp which was sessile 5 mm in diameter which was removed with the help of the cold biopsy forceps completely In the proximal sigmoid colon there was a polyp which was about 10 mm in diameter sessile removed with the help of the hot snare completely In the rectum there was a polyp which was 5 mm removed with the help of the co ld biopsy forceps completely In the rectum there were internal hemorrhoids seen without any gross bleeding There were few small diverticulae seen in the sigmoid and descending colon without any gross bleeding Patient tolerated the procedure extremely well and post op vital signs stable ENDOSCOPIC IMPRESSION: Descending colon polyp 5 mm removed by cold biopsy forceps completely Sigmoid colon polyp 10 mm removed with a hot snare completely Rectal polyp 5 mm removed by cold biopsy forceps Scattered diverticulae sigmoid and descending colon Internal hemorrhoids SUGGESTIONS: Await the histology of the polyps Symptomatic treatment for diverticulosis and hemorrhoid In view of the multiple polyps we will recommend repeat evaluation of the colon in 3 years If bleeding persist or recur may need further evaluation including capsule endoscopy etc. Thank you ALEXI Garibay MD Dec 26, 2024 10:24
--- NOTE | 2024-12-26 12:03 | DVHPN2 ---
Reviewed: Care Plan, H&P, Labs, Medications, Previous Orders, Radiology Changes from previous H/P or p: No Changes Objective Vitals Vital Signs Date Time Temp Pulse Resp B/P (MAP) Pulse Ox O2 Delivery O2 Flow Rate FiO2 12/26/24 10:15 51 12 121/80 (94) 100 12/26/24 09:55 97.9 97.9 12/26/24 09:55 Mask 7.0 12/26/24 09:55 100 Intake/Output Intake and Output 12/26/24 07:00 Intake Total 1860 ml Balance 1860 ml Intake Oral 1860 ml # Voids 12 # Bowel Movements 17 Medications Current Medications Medications Dose Ordered Sig/Edgardo Route Start Time Stop Time Status Last Admin Dose Admin Pantoprazole Sodium 40 mg DAILY IV 12/25/24 10:00 12/26/24 10:56 40 MG Ondansetron HCl 4 mg Q4HP PRN IV 12/24/24 21:00 Laboratory Results Laboratory Tests 12/24/24 18:45 12/25/24 04:26 Urinalysis Test 12/24/24 19:47 Urine Color Light-yellow (Yellow) Urine Clarity Clear (Clear) Urine pH 5.0 (5.0-9.0) Urine Specific [place] 1.026 (1.001-1.035) Urine Protein Negative (Negative) Urine Ketones Negative (Negative) Urine Blood Negative /uL (Negative) Urine Nitrite Negative (Negative) Urine Bilirubin Negative (Negative) Urine Urobilinogen Normal mg/dL (Negative) Urine Leukocyte Esterase Negative /uL (Negative) Urine RBC <1 /hpf (0 - 3) Urine Microscopic WBC < 1 /HPF (0-3) Urine Squamous Epithelial Cells None seen /hpf (<5) Urine Bacteria None seen /hpf (None Seen) Urine Glucose Normal mg/dL (Normal) Labs and/or images reviewed: Labs reviewed by me, Image(s) reviewed by me Assessment/Plan Assessment/Plan Hematochezia hemoglobin 15.0 stool occult blood positive, consult for Dr. Hernandez pantoprazole Status post colonoscopy by Dr. Hernandez 12/26/2024 with the following findings: Descending colon polyp 5 mm removed by cold biopsy forceps completely Sigmoid colon polyp 10 mm removed with a hot snare completely Rectal polyp 5 mm removed by cold biopsy forceps Scattered diverticulae sigmoid and descending colon Internal hemorrhoids We will check CBC in the morning and discharge if it is okay Plan discussed with: Patient Date of Service: Dec 26, 2024 Billing Provider: KATIE TA MD Common Visit Codes: [id number] INP/OBS CARE(HIGH) KATIE TA MD Dec 26, 2024 12:03
[2024-12-26 13:06] LABS: Basophils # (auto) 0.1 10 ^3/uL (0-0.2); Basophils % (auto) 1.4 % (0.0-2.0); Eosinophils # (auto) 0.1 10 ^3/uL (0-0.8); Eosinophils % (auto) 1.1 % (0.0-7.0); Hemoglobin 15.3 g/dL (13.5-17.5); Lymphocytes # (auto) 1.6 10 ^3/uL (0.4-5.4); Lymphocytes % (auto) 25.5 % (10.0-50.0); Mean Corpuscular Hemoglobin 29.5 pg (28.0-32.0); Mean Corpuscular Hgb Conc. 34.8 g/dL (32.0-36.0); Monocytes # (auto) 0.4 10 ^3/uL (0-1.3); Monocytes % (auto) 5.9 % (0.0-12.0); Neutrophils # (auto) 4.2 10 ^3/uL (1.6-8.6); Neutrophils % (auto) 66.1 % (37.0-80.0); Nucleated Red Blood Cells % 0.1 %; Platelet Count (auto) 227 10^3/uL (140-450); Red Blood Cells 5.18 10^6/uL (4.5-5.90); White Blood Cell 6.4 10^3/uL (4.4-10.8)
[2024-12-27 01:00] VITALS: BP 106/72; PULSE 57; RESP 16; TEMP 98; O2SAT 100
[2024-12-27 05:00] VITALS: BP 96/58; PULSE 54; RESP 18; TEMP 98.6; O2SAT 100
[2024-12-27 08:00] VITALS: PULSE 65; RESP 18; O2SAT 99
[2024-12-27 09:00] VITALS: BP 106/69; PULSE 59; RESP 17; TEMP 97.8; O2SAT 95
[2024-12-27 13:00] VITALS: BP 123/79; PULSE 64; RESP 18; TEMP 97.6; O2SAT 98
[2024-12-27] MEDS ORDERED: PANT40T PO (13:27)
[2024-12-27] MEDS ORDERED: HYDR25SU21 PR (13:27)
--- NOTE | 2024-12-27 13:27 | DVHPN2 ---
Reviewed: Care Plan, H&P, Labs, Medications, Previous Orders, Radiology Changes from previous H/P or p: No Changes Objective Vitals Vital Signs Date Time Temp Pulse Resp B/P (MAP) Pulse Ox O2 Delivery O2 Flow Rate FiO2 12/27/24 09:00 97.8 59 17 106/69 (81) 95 97.8 12/26/24 20:00 Room Air* 0 21 Intake/Output Intake and Output 12/27/24 07:00 Intake Total 236 ml Balance 236 ml Intake Oral 236 ml Medications Current Medications Medications Dose Ordered Sig/Edgardo Route Start Time Stop Time Status Last Admin Dose Admin Pantoprazole Sodium 40 mg DAILY IV 12/25/24 10:00 12/26/24 10:56 40 MG Ondansetron HCl 4 mg Q4HP PRN IV 12/24/24 21:00 Laboratory Results Laboratory Tests 12/24/24 18:45 12/26/24 12:53 Urinalysis Test 12/24/24 19:47 Urine Color Light-yellow (Yellow) Urine Clarity Clear (Clear) Urine pH 5.0 (5.0-9.0) Urine Specific [place] 1.026 (1.001-1.035) Urine Protein Negative (Negative) Urine Ketones Negative (Negative) Urine Blood Negative /uL (Negative) Urine Nitrite Negative (Negative) Urine Bilirubin Negative (Negative) Urine Urobilinogen Normal mg/dL (Negative) Urine Leukocyte Esterase Negative /uL (Negative) Urine RBC <1 /hpf (0 - 3) Urine Microscopic WBC < 1 /HPF (0-3) Urine Squamous Epithelial Cells None seen /hpf (<5) Urine Bacteria None seen /hpf (None Seen) Urine Glucose Normal mg/dL (Normal) Labs and/or images reviewed: Labs reviewed by me, Image(s) reviewed by me Assessment/Plan Assessment/Plan Hematochezia hemoglobin 15.0 stool occult blood positive, consult for Dr. Hernandez pantoprazole Status post colonoscopy by Dr. Hernandez 12/26/2024 with the following findings: Descending colon polyp 5 mm removed by cold biopsy forceps completely Sigmoid colon polyp 10 mm removed with a hot snare completely Rectal polyp 5 mm removed by cold biopsy forceps Scattered diverticulae sigmoid and descending colon Internal hemorrhoids Hemoglobin stable at 15 Plan discussed with: Patient Date of Service: Dec 27, 2024 Billing Provider: KATIE TA MD Common Visit Codes: [id number] INP/OBS CARE(HIGH) KATIE TA MD Dec 27, 2024 13:27
--- NOTE | 2024-12-27 13:31 | DVHDS2 ---
Discharge Summary Date of Admission Dec 24, 2024 at 20:57 Date of Discharge: Dec 27, 2024 Admitting Diagnosis Rectal bleeding Wounds: Colonoscopy Labs/Diagnostic Data: Laboratory Results Test 12/26/24 12:53 12/24/24 22:50 12/24/24 19:47 12/24/24 18:45 White Blood Count 6.4 10^3/uL (4.4-10.8) Red Blood Count 5.18 10^6/uL (4.5-5.90) Hemoglobin 15.3 g/dL (13.5-17.5) Hematocrit 44.0 % (41.0-53.0) Mean Corpuscular Volume 85.0 fL (80.0-100.0) Mean Corpuscular Hemoglobin 29.5 pg (28.0-32.0) Mean Corpuscular Hemoglobin Concent 34.8 g/dL (32.0-36.0) Red Cell Distribution Width 14.0 % (11.8-14.3) Platelet Count 227 10^3/uL (140-450) Mean Platelet Volume 8.5 fL (6.9-10.8) Neutrophils (%) (Auto) 66.1 % (37.0-80.0) Lymphocytes (%) (Auto) 25.5 % (10.0-50.0) Monocytes (%) (Auto) 5.9 % (0.0-12.0) Eosinophils (%) (Auto) 1.1 % (0.0-7.0) Basophils (%) (Auto) 1.4 % (0.0-2.0) Neutrophils # (Auto) 4.2 10 ^3/uL (1.6-8.6) Lymphocytes # (Auto) 1.6 10 ^3/uL (0.4-5.4) Monocytes # (Auto) 0.4 10 ^3/uL (0-1.3) Eosinophils # (Auto) 0.1 10 ^3/uL (0-0.8) Basophils # (Auto) 0.1 10 ^3/uL (0-0.2) Nucleated Red Blood Cells 0.1 % Stool Occult Blood Positive (Negative) Stool Occult Blood Sample #3 (Negative) Urine Color Light-yellow (Yellow) Urine Clarity Clear (Clear) Urine pH 5.0 (5.0-9.0) Urine Specific [place] 1.026 (1.001-1.035) Urine Protein Negative (Negative) Urine Ketones Negative (Negative) Urine Blood Negative /uL (Negative) Urine Nitrite Negative (Negative) Urine Bilirubin Negative (Negative) Urine Urobilinogen Normal mg/dL (Negative) Urine Leukocyte Esterase Negative /uL (Negative) Urine RBC <1 /hpf (0 - 3) Urine Microscopic WBC < 1 /HPF (0-3) Urine Squamous Epithelial Cells None seen /hpf (<5) Urine Bacteria None seen /hpf (None Seen) Urine Glucose Normal mg/dL (Normal) Prothrombin Time 10.7 sec (9.3-11.8) Prothrombin Time INR 1.01 (0.9-1.15) Activated Partial Thromboplast Time 27.8 SEC (24.5-34.5) Sodium Level 142 mmol/L (136-145) Potassium Level 4.4 mmol/L (3.5-5.1) Chloride Level 109 mmol/L (98-107) Carbon Dioxide Level 27 mmol/L (20-31) Anion Gap 6 (5-15) Blood Urea Nitrogen 18 mg/dL (9-23) Creatinine 0.98 mg/dL (0.700-1.30) Glomerular Filtration Rate Calc 96 mL/min (>90) BUN/Creatinine Ratio 18.4 (10.0-20.0) Serum Glucose 76 mg/dL (74-106) Calcium Level 9.6 mg/dL (8.7-10.4) Total Bilirubin 0.5 mg/dL (0.2-1.0) Aspartate Amino Transferase (AST) 13 U/L (13-40) Alanine Aminotransferase (ALT) 24 U/L (7-40) Alkaline Phosphatase 90 U/L (46-116) Total Protein 7.5 g/dL (5.7-8.2) Albumin 4.4 g/dL (3.2-4.8) Other Laboratory Tests 12/26/24 12:53 12/24/24 18:45 Brief Hx & Hospital Course: 72-year-old male with no previous medical history came in for rectal bleeding hemoglobin 15.0 and stable stool occult blood was positive patient underwent colonoscopy by Dr. Hernandez with the findings of polyps descending colon sigmoid colon and rectum. Which were removed and sent for biopsy. Hemoglobin stable at 15 postop. Discharged home. Prescription for pantoprazole Anusol HC sent to pharmacy. He was advised to follow up with the Dr. Hernnadez for the biopsy result in 10 days. 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 Given off work for five days. Consults/Reason for consult GI Dr. Hernandez Operations or Procedures Colonoscopy Condition at Discharge: Fair Final Diagnosis/Problems List Hematochezia hemoglobin 15.0 stool occult blood positive, consult for Dr. Hernandez pantoprazole Status post colonoscopy by Dr. Hernandez 12/26/2024 with the following findings: Descending colon polyp 5 mm removed by cold biopsy forceps completely Sigmoid colon polyp 10 mm removed with a hot snare completely Rectal polyp 5 mm removed by cold biopsy forceps Scattered diverticulae sigmoid and descending colon Internal hemorrhoids Hemoglobin stable at 15 Discharge Disposition: Home Discharge Instruct/Medications Diet: Regular Activity: See Comment Activity comment: off Work for five days Follow Up/Referral: Follow up with the GI Dr. Hernandez in 10 days for the biopsy result Medications: Pantoprazole Anusol HC suppository Transmitted to pharmacy 35 (Time taken For discharge summary 35 minutes) Discharge Statement: "Patient was advised to return to the ER or call 911 if any headaches, dizziness, shortness of breath, chest pain, abdominal pain, bleeding, fevers, or worsening of medical condition. Patient was counseled about treatment plan, medications, possible side effects, patientverbalized understanding. All questions were answered to the best of my ability. This discharge took greater then 30 minutes in planning, reviewing documentation, counseling the patient, and discussing with other team members." ASSESSMENT ASSESSMENT Hospital Course Resolved Assessment Hematochezia hemoglobin 15.0 stool occult blood positive, consult for Dr. Hernandez pantoprazole Status post colonoscopy by Dr. Hernandez 12/26/2024 with the following findings: Descending colon polyp 5 mm removed by cold biopsy forceps completely Sigmoid colon polyp 10 mm removed with a hot snare completely Rectal polyp 5 mm removed by cold biopsy forceps Scattered diverticulae sigmoid and descending colon Internal hemorrhoids Hemoglobin stable at 15 Date of Service: Dec 27, 2024 Billing Provider: KATIE TA MD Common Visit Codes: [id number] DISCH DAY >30min KATIE TA MD Dec 27, 2024 13:31
== END 2024-12-27 14:19 | disposition home or self-care (01) | DRG 379 ==
LOC: ER 17:51 → OVERFLOW 20:57 → WEST WING 22:47
PROVIDERS: ADMIT Family Medicine; ATTEND Family Medicine
PROC: 0DBN8ZZ Excision of Sigmoid Colon, Via Natural or Artificial Opening Endoscopic (ICD-10-PCS; 2024-12-26)
PROC: 0DBP8ZZ Excision of Rectum, Via Natural or Artificial Opening Endoscopic (ICD-10-PCS; 2024-12-26)
PROC: 0DBM8ZZ Excision of Descending Colon, Via Natural or Artificial Opening Endoscopic (ICD-10-PCS; principal; 2024-12-26 09:23)
DX: K57.31 Diverticulosis of large intestine without perforation or abscess with bleeding (principal); K64.8 Other hemorrhoids; K62.1 Rectal polyp; K63.5 Polyp of colon; E78.5 Hyperlipidemia, unspecified; Z86.0100 Personal history of colon polyps, unspecified; Z82.49 Family history of ischemic heart disease and other diseases of the circulatory system; Z82.3 Family history of stroke; Z79.899 Other long term (current) drug therapy
CPT/HCPCS: 36415; 45384; 74176; 80053; 81001; 82270; 85025; 85610; 85730; 86850; 86900; 86901; 96374; G0378; J2470; J2704

== ENCOUNTER 2025-04-25 17:49 | Inpatient (IN) | payer OTHER ==
[~2025-04-25] VITALS: Ht 172.7 cm; Wt 105.5 kg
[~2025-04-25 17:49] MED LIST changes: -ACET1CAP14 PO; +HYDR25SU21 PR; -MULT-1018 PO; +PANT40T PO
--- NOTE | 2025-04-25 18:19 | ED.PDOC ---
GI ASSESSMENT HPI Comments 49 year old male presents to the ED with a chief complaint of rectal bleeding onset 3 days. Patient was discharged from [facility] on 12/27/24, was admitted due to rectal bleeding, had polyps removed and sent for biopsy. He noticed blood when he wiped, had loose stool for the past 3 days, today noticed diarrhea and significant blood in stool. He is also experiencing generalized abdominal pain, described as an aching pain. Denies nausea, vomiting, hematemesis, dysuria, fever, chills, chest pain, shortness of breath, dizziness. No other symptoms or modifying factors present at this time. Chief Complaint: GI Bleed Time Seen by MD: 18:10 Reviewed Notes: Medications, Allergies Allergies: Coded Allergies: NO KNOWN ALLERGIES (Unverified , 02/27/20) Home Meds Active Scripts Hydrocortisone Acetate (Anusol-Hc) 25 Mg Sup, 1 SUPP KS BID, #14 SUPP Prov:KATIE TA MD 12/27/24 Pantoprazole Sodium Sesquihydr (Pantoprazole Sodium) 40 Mg Tab, 40 MG PO DAILY, #30 TAB Prov:KATIE TA MD 12/27/24 Reported Medications Patients Own Medication (PATIENTS OWN MEDICATION) ., 10 MG PO DAILY PTS OWN MED-OBTAIN FROM PT AND SEND TO RX DRUG: "CHOLESTEROL MED" TAB FREQ: 10 MG PO DAILY RX# EXP: DATE DISP: TECH: [facility]: 02/28/20 Information Source: Patient Mode of Arrival: Ambulatory Timing: Days Duration: Since onset Prehospital treatment: None Quality: Aching Vomitus: None Stool: Blood Streaked Severity: Moderate Recent: None Past Medical History PAST MEDICAL HISTORY: High Lipids Surgical History: Appendectomy Family History Family History: Reviewed,noncontributory to illness, Unknown Social History Smoker: Non-Smoker Alcohol: Denies ETOH Use Drugs: Denies Drug Use Lives In: Home Constitutional: denies: chills, diaphoresis, fatigue, fever, malaise, sweats, weakness, others EENTM: denies: blurred vision, double vision, ear bleeding, ear discharge, ear drainage, ear pain, ear ringing, eye pain, eye redness, hearing loss, mouth pain, mouth swelling, nasal discharge, nose bleeding, nose congestion, nose pain , photophobia, tearing, throat pain, throat swelling, voice changes, others Respiratory: denies: cough, hemoptysis, orthopnea, SOB at rest, shortness of breath, SOB with excertion, stridor, wheezing, others Cardiovascular: denies: chest pain, dizzy spells, diaphoresis, Dyspnea on exertion, edema, irregular heart beat, left arm pain, lightheadedness, palpitations, PND, syncope, others Gastrointestinal: reports: abdominal pain, rectal bleeding; denies: abdomen distended, blood streaked bowels, constipated, diarrhea, dysphagia, difficulty swallowing, hematemesis, melena, nausea, poor appetite, poor fluid intake, rectal pain, vomiting, others Genitourinary: denies: burning, dysuria, flank pain, frequency, hematuria, incontinence, penile discharge, penile sore, pain, testicle pain, testicle swelling, urgency, others Neurological: denies: dizziness, fainting, headache, left sided numbness, left sided weakness, numbness, paresthesia, pre-existing deficit, right sided numbness, right sided weakness, seizure, speech problems, tingling, tremors, weakness, others Musculoskeletal: denies: back pain, gout, joint pain, joint swelling, muscle pain, muscle stiffness, neck pain, others Integumetry: denies: bruises, change in color, change in hair/nails, dryness, laceration, lesions, lumps, rash, wounds, others Allergic/Immunocompromised: denies: Difficulty Healing, Frequent Infections, Hives, Itching, others Hematologic/Lymphatic: denies: anemia, blood clots, easy bleeding, easy bruising, swollen glands, others Endocrine: denies: excessive hunger, excessive sweating, excessive thirst, excessive urination, flushing, intolerance to cold, intolerance to heat, unexplained weight gain, unexplained weight loss, others Psychiatric: denies: anxiety, bipolar disorder, depression, hopeless, panic disorder, schizophrenia, sleepless, suicidal, others All Other Systems: Reviewed and Negative Physical Exam General Appearance: Normal HEENT: Normal ENT Inspection, Pharynx Normal, TMs Normal Neck: Full Range of Motion, Non-Tender, Normal, Normal Inspection Respiratory: Chest Non-Tender, Lungs Clear, No Accessory Muscle Use, No Respiratory Distress, Normal Breath Sounds Cardiovascular: No Edema, No JVD, No Murmur, No Gallop, Normal Peripheral Pulses, Regular Rate/Rhythm Breast Exam: Deferred Gastrointestinal: No Organomegaly, Non Tender, No Pulsatile Mass, Normal Bowel Sounds, Soft Genitalia: Deferred Pelvic: Deferred Rectal: Deferred Extremities: No calf tenderness, Normal capillary refill, Normal inspection, Normal range of motion, Non-tender, No pedal edema Musculoskeletal : Apperance: Normal Neurologic: Alert, pull tab dealer II-XII nml as Tested, No Motor Deficits, Normal Affect, Normal Mood, No Sensory Deficits Cerebellar Function: Normal Reflexes: Normal Skin: Dry, Normal Color, Warm Lymphatic: No Adenopathy Was a procedure done? Was a procedure done?: No GI differential Dx Differential Diagnosis: Other (Diverticulosis, diverticulitis, ischemic bowel, gastric ulcer, esophagitis, upper GI bleed, lower GI bleed, internal/external hemorrhoids, anemia) X-Ray, Labs, Meds, VS Vital Signs Date Time Temp Pulse Resp B/P (MAP) Pulse Ox O2 Delivery O2 Flow Rate FiO2 04/25/25 17:51 97.7 74 15 144/82 97 97.7 Lab Test 04/25/25 18:10 Range/Units White Blood Count 8.6 4.4-10.8 10^3/uL Red Blood Count 5.21 4.5-5.90 10^6/uL Hemoglobin 15.4 13.5-17.5 g/dL Hematocrit 44.2 41.0-53.0 % Mean Corpuscular Volume 84.8 80.0-100.0 fL Mean Corpuscular Hemoglobin 29.6 28.0-32.0 pg Mean Corpuscular Hemoglobin Concent 34.9 32.0-36.0 g/dL Red Cell Distribution Width 14.6 H 11.8-14.3 % Platelet Count 250 140-450 10^3/uL Mean Platelet Volume 8.5 6.9-10.8 fL Neutrophils (%) (Auto) 61.1 37.0-80.0 % Lymphocytes (%) (Auto) 30.6 10.0-50.0 % Monocytes (%) (Auto) 6.0 0.0-12.0 % Eosinophils (%) (Auto) 1.2 0.0-7.0 % Basophils (%) (Auto) 1.1 0.0-2.0 % Neutrophils # (Auto) 5.2 1.6-8.6 10 ^3/uL Lymphocytes # (Auto) 2.6 0.4-5.4 10 ^3/uL Monocytes # (Auto) 0.5 0-1.3 10 ^3/uL Eosinophils # (Auto) 0.1 0-0.8 10 ^3/uL Basophils # (Auto) 0.1 0-0.2 10 ^3/uL Nucleated Red Blood Cells 0.1 % Sodium Level 141 136-145 mmol/L Potassium Level 3.8 3.5-5.1 mmol/L Chloride Level 106 98-107 mmol/L Carbon Dioxide Level 25 20-31 mmol/L Anion Gap 10 5-15 Blood Urea Nitrogen 13 9-23 mg/dL Creatinine 1.09 0.700-1.30 mg/dL Glomerular Filtration Rate Calc 84 >90 mL/min BUN/Creatinine Ratio 11.9 10.0-20.0 Serum Glucose 139 H 74-106 mg/dL Calcium Level 9.0 8.7-10.4 mg/dL Total Bilirubin 0.9 0.2-1.0 mg/dL Direct Bilirubin 0.2 <0.3 mg/dL Aspartate Amino Transferase (AST) 24 13-40 U/L Alanine Aminotransferase (ALT) 27 7-40 U/L Alkaline Phosphatase 94 46-116 U/L Total Protein 7.6 5.7-8.2 g/dL Albumin 4.7 3.2-4.8 g/dL Lipase 48 12-53 U/L X-Ray, Labs, Meds, VS Comment 49-year-old male here today with complaints of lower GI bleed with prior history of the same in December of this year found to have multiple polyps. Vital signs stable, afebrile. Labs overall reassuring with evidence of stable hemoglobin. Had a long discussion with the patient and he stated that, the last time he had his colonoscopy done in December, the GI doctor told him that there were other polyps that were not intervened on as they were small and if he is to start bleeding again in the future that he is to come back to the hospital for a repeat colonoscopy. Bannock score 11, admit recommended. Plan made to admit the patient for GI consult and for consideration of repeat colonoscopy. Patient in agreement with plan. Time of 1ST Reevaluation: 18:40 Reevaluation 1ST: Unchanged Patient Education/Counseling: Diagnosis, Treatment, Prognosis Family Education/Counseling: No Family Present SEPSIS Sepsis Screen Date sepsis recognized/suspect: Apr 25, 2025 Time Sepsis recognized/suspect: 1753 Recent Procedure: No On Antibiotic Therapy: No Respiratory Rate >20: No Heart Rate >90: No Temp<36 C (96.8 F) or >38.3 C: No SBP <90 or MAP <65 mmHG: No New Acute Mental Status Change: No Is the patient on CPAP, BIPAP,: No Vital Signs Date Time Temp Pulse Resp B/P (MAP) Pulse Ox O2 Delivery O2 Flow Rate FiO2 04/25/25 17:51 97.7 74 15 144/82 97 97.7 Laboratory Tests Test 04/25/25 18:10 White Blood Count 8.6 10^3/uL (4.4-10.8) Departure 1 Departure Time of Disposition: 20:33 Impression: Primary Impression: Lower GI bleed Additional Impression: History of colonic polyps Disposition: ADMITTED INPATIENT Condition: Stable Critical Care Note Critical Care Time?: No Stability Stability form required: No Heart Score Heart Score: Heart Score Response (Comments) Value History N/A 0 EKG N/A 0 Age N/A 0 Risk Factors N/A 0 Troponin N/A 0 Total 0 I personally scribed for MARIAH RUEDA MD ([email or web address]) on 04/25/25 at 18:19. Electronically submitted by Irma Aleman ([email or web address]). MARIAH RUEDA MD Apr 25, 2025 18:19
[2025-04-25 18:22] LABS: Hematocrit 44.2 % (41.0-53.0); Hemoglobin 15.4 g/dL (13.5-17.5); Mean Corpuscular Hemoglobin 29.6 pg (28.0-32.0); Mean Corpuscular Volume 84.8 fL (80.0-100.0); Nucleated Red Blood Cells % 0.1 %
[2025-04-25 18:54] LABS: Alanine Aminotransferase 27 U/L (7-40); Albumin 4.7 g/dL (3.2-4.8); Alkaline Phosphatase 94 U/L (46-116); Anion Gap 10 (5-15); BUN/Creatinine Ratio 11.9 (10.0-20.0); Bilirubin, Direct 0.2 mg/dL (<0.3); Blood Urea Nitrogen 13 mg/dL (9-23); Calcium 9.0 mg/dL (8.7-10.4); Carbon Dioxide 25 mmol/L (20-31); Chloride 106 mmol/L (98-107); Glucose 139 mg/dL (74-106); Potassium 3.8 mmol/L (3.5-5.1); Sodium 141 mmol/L (136-145); Total Protein 7.6 g/dL (5.7-8.2)
[2025-04-25 18:55] LABS: Bilirubin, Total 0.9 mg/dL (0.2-1.0)
[2025-04-25 19:05] LABS: Lipase 48 U/L (12-53)
--- NOTE | 2025-04-25 21:22 | DVHHPRES ---
History of Present Illness Resident Creating Document: YAQUELIN GRANGER RESIDENT History of Present Illness 49-year-old male presents to the ER with the complaints of passage of fresh blood per rectum with stool since Friday associated with left upper and epigastric abdominal discomfort. Abdominal discomfort has no relation with food , does not radiate. He reports having watery diarrhea associated with this symptom. Patient was admitted at [facility] in December due to same complaints. CT abdomen and pelvis during that admission showed few colonic diverticula without any evidence of diverticulitis. Also, a colonoscopy was performed during that admission, which showed multiple polyps, which were rem reyna successfully via colonoscopy. There was no other acute abnormality detected that time. He has a history of hemorrhoids. He denies any recent travel or sick contacts. He does not have lightheadedness, constipation, nausea, vomiting, palpitations or any other associated symptoms. He denies chest pain, shortness of breath, fever or urinary symptoms as well. Past medical history: Hyperlipidemia Past surgical history: None Home medications: None Allergies: No known allergies Smoking: None Alcohol 1-2 drinks over the weekends Drugs: Never PCP: From [place] Code status: Full code GI: Diverticulosis, GI bleed Review of Systems Gastrointestinal: Hematochezia, Other Other Upper abdominal discomfort Allergies: Coded Allergies: NO KNOWN ALLERGIES (Unverified , 02/27/20) Medications Current Medications Medications Dose Ordered Sig/Edgardo Route Start Time Stop Time Status Last Admin Dose Admin Sodium Chloride 10 ml Q8HR IV 04/25/25 22:00 UNV Sodium Chloride 1,000 ml @ 60 mls/hr [id number] IV 04/25/25 21:00 UNV Ondansetron HCl 4 mg Q4HP PRN IV 04/25/25 21:00 UNV Exam Vital Signs Vital Signs Date Time Temp Pulse Resp B/P (MAP) Pulse Ox O2 Delivery O2 Flow Rate FiO2 04/25/25 17:51 97.7 74 15 144/82 97 97.7 Exam Pt is lying on bed General Appearance: Alert, Oriented X3, Cooperative, Mild distress HEENT: Atraumatic, Mucous membranes moist/pink Respiratory: Clear to auscultation, Normal air movement, No added sounds Cardiovascular: Regular rate, Normal S1, Normal S2, No murmurs Abdominal/ : Active bowel sounds, Soft, no distention, no tenderness Rectal exam: Normal, heme-negative, no external hemorrhoids,fissures skin tags or masses noted, normal sphincter tone, no tenderness. Rectal vault empty, no stool present Extremities: No edema, Normal pulses, No tenderness/swelling Skin: No Significant rash, except past surgical scars Neuro: Normal speech, sensorimotor deficits none Psych/Mental Status: Mental status NL, Mood NL Nurse was there as employee representative during examination Labs/Xrays Labs Test 04/25/25 18:10 Range/Units White Blood Count 8.6 4.4-10.8 10^3/uL Red Blood Count 5.21 4.5-5.90 10^6/uL Hemoglobin 15.4 13.5-17.5 g/dL Hematocrit 44.2 41.0-53.0 % Mean Corpuscular Volume 84.8 80.0-100.0 fL Mean Corpuscular Hemoglobin 29.6 28.0-32.0 pg Mean Corpuscular Hemoglobin Concent 34.9 32.0-36.0 g/dL Red Cell Distribution Width 14.6 H 11.8-14.3 % Platelet Count 250 140-450 10^3/uL Mean Platelet Volume 8.5 6.9-10.8 fL Neutrophils (%) (Auto) 61.1 37.0-80.0 % Lymphocytes (%) (Auto) 30.6 10.0-50.0 % Monocytes (%) (Auto) 6.0 0.0-12.0 % Eosinophils (%) (Auto) 1.2 0.0-7.0 % Basophils (%) (Auto) 1.1 0.0-2.0 % Neutrophils # (Auto) 5.2 1.6-8.6 10 ^3/uL Lymphocytes # (Auto) 2.6 0.4-5.4 10 ^3/uL Monocytes # (Auto) 0.5 0-1.3 10 ^3/uL Eosinophils # (Auto) 0.1 0-0.8 10 ^3/uL Basophils # (Auto) 0.1 0-0.2 10 ^3/uL Nucleated Red Blood Cells 0.1 % Sodium Level 141 136-145 mmol/L Potassium Level 3.8 3.5-5.1 mmol/L Chloride Level 106 98-107 mmol/L Carbon Dioxide Level 25 20-31 mmol/L Anion Gap 10 5-15 Blood Urea Nitrogen 13 9-23 mg/dL Creatinine 1.09 0.700-1.30 mg/dL Glomerular Filtration Rate Calc 84 >90 mL/min BUN/Creatinine Ratio 11.9 10.0-20.0 Serum Glucose 139 H 74-106 mg/dL Calcium Level 9.0 8.7-10.4 mg/dL Total Bilirubin 0.9 0.2-1.0 mg/dL Direct Bilirubin 0.2 <0.3 mg/dL Aspartate Amino Transferase (AST) 24 13-40 U/L Alanine Aminotransferase (ALT) 27 7-40 U/L Alkaline Phosphatase 94 46-116 U/L Total Protein 7.6 5.7-8.2 g/dL Albumin 4.7 3.2-4.8 g/dL Lipase 48 12-53 U/L SEPSIS Sepsis Screen Date sepsis recognized/suspect: Apr 25, 2025 Time Sepsis recognized/suspect: 1753 Recent Procedure: No On Antibiotic Therapy: No Respiratory Rate >20: No Heart Rate >90: No Temp<36 C (96.8 F) or >38.3 C: No SBP <90 or MAP <65 mmHG: No New Acute Mental Status Change: No Is the patient on CPAP, BIPAP,: No Physician Orders Stool Occult Blood (04/25/25 20:52) Stool Wbc (04/25/25 20:52) Stool Bacterial Culture (04/25/25 20:52) Clostridium Difficile Toxin (04/25/25 20:52) Admit (04/25/25 20:56) Allergies (04/25/25 20:56) Code Status (04/25/25 20:56) Sodium Chloride Lock (Saline Lock Ns) (04/25/25 22:00) Sodium Chloride 0.9% (04/25/25 21:00) Ondansetron Hcl (Zofran) (04/25/25 21:00) Clear Liq Diet (04/26/25 Breakfast) Notify Md Of Changes From Base (04/25/25 20:56) Hemoglobin A1c (04/25/25 21:19) Urinalysis (04/25/25 21:19) Drug Screen (04/25/25 21:19) Ct Ab Pel Wo Con-No Oral Or Iv (04/25/25 21:19) Vital Signs Date Time Temp Pulse Resp B/P (MAP) Pulse Ox O2 Delivery O2 Flow Rate FiO2 04/25/25 17:51 97.7 74 15 144/82 97 97.7 Laboratory Tests Test 04/25/25 18:10 White Blood Count 8.6 10^3/uL (4.4-10.8) Assessment/Plan Assessment/Plan Per rectal fresh bleeding due to diverticulosis/hemorrhoids Left and Upper abdominal discomfort due to PUD?/acute pancreatitis IV fluid given Pantoprazole [address] abdomen and pelvis ordered Dietary fiber intake Consult GI if necessary GI prophylaxis: Pantoprazole DVT prophylaxis: Patient is ambulatory, not indicated Diet: Cardiac Goals of care discussed with the patient for more than 27 minutes: Full code status Case discussed with Dr. Cruz , patient and RN Plan discussed with: Patient, Other (RN) My Orders Orders - YAQUELIN GRANGER Procedure Category Date Status Time Admit ADMIT 04/25/25 Transmitted 20:56 Allergies MILLIE 04/25/25 In Process 20:56 Code Status CODE 04/25/25 Transmitted 20:56 Sodium Chloride Lock PHA 04/25/25 Logged (Saline Lock Ns) 22:00 Sodium Chloride 0.9% PHA 04/25/25 Logged 21:00 Ondansetron Hcl PHA 04/25/25 Logged (Zofran) 21:00 Clear Liq Diet DIET 04/26/25 Transmitted Breakfast Notify Of Changes MILLIE 04/25/25 In Process From Base 20:56 Hemoglobin A1c LAB 04/25/25 Logged 21:19 Urinalysis LAB 04/25/25 Verified 21:19 Drug Screen LAB 04/25/25 Verified 21:19 Ct Ab Pel Wo Con-No CT 04/25/25 Verified Oral Or Iv 21:19 Date of Service: Apr 25, 2025 Billing Provider: NEMESIO ERICKSON MD Common Visit Codes: [id number] INP/OBS CARE (HIGH) Secondary Visit Codes: [id number] CARE PLAN 30 MINUTES YAQUELIN GRANGER Apr 25, 2025 21:22
[2025-04-25] MEDS: SODIUM CHLOR 0.9% PF (SALINE LOCK) 10ML VIAL/SYR IV SCH (22:00)
--- NOTE | 2025-04-25 23:01 | DVH ---
Exam: CT CT AB PEL WO CON-NO ORAL OR IV History: GI bleeding Comparison Study: CT CT AB PEL WO CON-NO ORAL OR IV on DOS: 12/24/24 TECHNIQUE: Multidetector CT of the abdomen and pelvis was performed from lung bases to pubic symphysi s. Imaging was performed without IV contrast. Axial, coronal, and sagittal multiplanar reformats were obtained from the axial data set by the technologist. RADIATION DOSE: CTDI vol 22.49 mGy. DLP 1372.75 mGy.cm Findings: Limited evaluation of the solid organs in the absence of IV contrast. Liver: Unremarkable. Spleen: Small splenule. Pancreas: Unremarkable. Gallbladder: Contracted in appearance. Adrenals: Unremarkable Kidneys: Unremarkable. Pelvic Viscera: Unremarkable. Vasculature: Mild atherosclerotic aortoiliac calcifications. Retroperitoneum: Unremarkable. Bowel: No bowel obstruction. Musculoskeletal: Unremarkable. Soft tissues: Unremarkable Lungs: The lung bases are clear. Impression: 1. No acute abdominopelvic abnormality identified. 2. Incidental findings as detailed. 3. If there is persistent clinical concern for GI bleed, CTA of the abdomen/pelvis may be beneficial in further assessment.
[2025-04-26] MEDS: SODIUM CHLORIDE 0.9% 1,000 ML IV SCH (03:28)
[2025-04-26 03:32] VITALS: BP 104/58; PULSE 81; RESP 18; TEMP 98.3; O2SAT 97
[2025-04-26] MEDS ORDERED: ATOR10TA52 PO (04:01)
[2025-04-26 04:25] LABS: Urine Protein, UAD Negative (Negative)
[2025-04-26 04:26] LABS: Amphetamine Screen, Urine Neg (NEGATIVE); Barbiturate Scree,Urine Neg (NEGATIVE); Benzodiazephine Screen, Urine Neg (NEGATIVE); Cannabinoid Screen, Urine Neg (NEGATIVE); Cocaine Screen, Urine Neg (NEGATIVE); Opiate Scree,Urine Neg (NEGATIVE)
[2025-04-26 05:44] LABS: Phencyclidine Screen, Urine Neg (NEGATIVE)
[2025-04-26] MEDS: PANTOPRAZOLE 40 MG/10 ML VIAL INJ IV SCH (11:24)
--- NOTE | 2025-04-26 11:49 | DVHPN2 ---
Progress Note Date Seen: Apr 26, 2025 Medical Necessity Reason Pt with a Central, PICC or Fol: No Subjective Patient reports: No new complaints Review of Systems: HEENT:Normal, CVS:Normal, RESPIRATORY:Normal, GI:Normal, :Normal, MSK:Normal, NEURO:Normal Objective vital signs Vital Sign Date Time Temp Pulse Resp B/P (MAP) Pulse Ox O2 Delivery O2 Flow Rate FiO2 04/26/25 03:32 81 18 Room Air* 0 21 04/26/25 03:32 98.3 104/58 (73) 97 98.3 medications Current Medications Medications Dose Ordered Sig/Edgardo Route Start Time Stop Time Status Last Admin Dose Admin Sodium Chloride 10 ml Q8HR IV 04/25/25 22:00 04/26/25 06:04 10 ML Sodium Chloride 1,000 ml @ 60 mls/hr [id number] IV 04/25/25 21:00 04/26/25 03:28 60 MLS/HR Ondansetron HCl 4 mg Q4HP PRN IV 04/25/25 21:00 Pantoprazole Sodium 40 mg DAILY IV 04/26/25 10:00 04/26/25 11:24 40 MG Examination: GENERAL:Normal, HEENT:Normal, NECK:Normal, LUNGS:Normal, CVS:Normal, ABDOMEN:Normal, MSK:Normal, SKIN:Normal, NEURO:Normal, :Normal laboratory and microbiology Laboratory Tests 04/25/25 18:10 Test 04/25/25 18:10 Range/Units Serum Glucose 139 H 74-106 mg/dL Problem List/Assessment/Plan Problem List/Assessment/Plan #1 gi bleed: ivf, gi eval, cbc #2 obesity #3 hyperlipidemia #4 h/o colon polyps Plan discussed with: Patient My Orders My Orders Orders - DONALD JOHNSON MD Procedure Category Date Status Time * Gi Dvh Car Supervisor CONS 04/26/25 Transmitted 11:46 Complete Blood Count LAB 04/26/25 Transmitted 11:46 PTPTT LAB 04/26/25 Transmitted 11:46 Complete Blood Count LAB 04/27/25 Verified 06:00 Basic Metabolic Panel LAB 04/27/25 Verified 06:00 Date of Service: Apr 26, 2025 Billing Provider: DONALD JOHNSON MD Common Visit Codes: [id number] INP/OBS CARE(HIGH) DONALD JOHNSON MD Apr 26, 2025 11:49
[2025-04-26 13:28] LABS: Hematocrit 44.3 % (41.0-53.0); Hemoglobin 15.1 g/dL (13.5-17.5); Mean Corpuscular Hemoglobin 29.4 pg (28.0-32.0); Mean Corpuscular Volume 86.1 fL (80.0-100.0); Nucleated Red Blood Cells % 0.1 %
[2025-04-26 13:45] LABS: INR 1.04 (0.9-1.15); Partial Thromboplastin Time 29.3 SEC (24.5-34.5); Prothrombin Time 11.0 sec (9.3-11.8)
--- NOTE | 2025-04-26 13:58 | DVHINCON2 ---
GI Consult Consult Note GI consult note Date of Consultation: 04/26/2025 Chief Complaint: GI bleed Referring Physician: Dr. Crockett H&P: 49-year-old male with past medical history of hyperlipidemia presented to ER with complains of red blood rectally, starting last Friday. Patient was mostly having blood with his bowel movements and now that has improved. No rectal pain. Denies history of blood thinners. No NSAIDs. Usually has regular bowel movements no history of constipation or hard stool. Patient's stool has been watery recently. DATE OF PROCEDURE: 12/26/24 INDICATIONS FOR THE PROCEDURE: Rectal bleeding PROCEDURE PERFORMED: Colonoscopy and polypectomy by hot snare and polypectomy with cold biopsy forceps POSTOPERATIVE DIAGNOSIS: Descending colon polyp 5 mm removed by cold biopsy forceps completely Sigmoid colon polyp 10 mm removed with a hot snare completely Rectal polyp 5 mm removed by cold biopsy forceps Scattered diverticulae sigmoid and descending colon Internal hemorrhoids Pathology reviewed benign polyps Past Medical History: Hyperlipidemia Past Surgical History: None Social History: NO smoking, drinking ETOH and use of illegal drugs. Family History: Noncontributory Review of Systems: Constitutional: no fever, chill, weight loss HEENT: no eye pain, no hearing loss, no oral lesion, no scleral icterus Heart: no chest pain, no chest pressure Lung: no cough, no dyspnea with exertion Abdomen: see HPI Physical exam: General: NAD, AAOX3 Chest: lung dupree clear to auscultation Heart: RRR, no murmur Abdomen: non-distended, no tenderness to palpation, +BS Labs: Labs Test 04/26/25 12:52 04/26/25 03:30 04/25/25 18:10 04/25/25 12:53 Range/Units White Blood Count 6.1 # 4.4-10.8 10^3/uL Red Blood Count 5.15 4.5-5.90 10^6/uL Hemoglobin 15.1 13.5-17.5 g/dL Hematocrit 44.3 41.0-53.0 % Mean Corpuscular Volume 86.1 80.0-100.0 fL Mean Corpuscular Hemoglobin 29.4 28.0-32.0 pg Mean Corpuscular Hemoglobin Concent 34.2 32.0-36.0 g/dL Red Cell Distribution Width 14.5 H 11.8-14.3 % Platelet Count 234 140-450 10^3/uL Mean Platelet Volume 9.0 6.9-10.8 fL Neutrophils (%) (Auto) 58.6 37.0-80.0 % Lymphocytes (%) (Auto) 30.8 10.0-50.0 % Monocytes (%) (Auto) 9.0 0.0-12.0 % Eosinophils (%) (Auto) 1.0 0.0-7.0 % Basophils (%) (Auto) 0.6 0.0-2.0 % Neutrophils # (Auto) 3.6 1.6-8.6 10 ^3/uL Lymphocytes # (Auto) 1.9 0.4-5.4 10 ^3/uL Monocytes # (Auto) 0.5 0-1.3 10 ^3/uL Eosinophils # (Auto) 0.1 0-0.8 10 ^3/uL Basophils # (Auto) 0 0-0.2 10 ^3/uL Nucleated Red Blood Cells 0.1 % Prothrombin Time 11.0 9.3-11.8 sec Prothrombin Time INR 1.04 0.9-1.15 Activated Partial Thromboplast Time 29.3 24.5-34.5 SEC Urine Color Yellow Yellow Urine Clarity Clear Clear Urine pH 5.5 5.0-9.0 Urine Specific [place] 1.034 1.001-1.035 Urine Protein Negative Negative Urine Ketones Negative Negative Urine Blood Negative Negative /uL Urine Nitrite Negative Negative Urine Bilirubin Negative Negative Urine Urobilinogen Normal Negative mg/dL Urine Leukocyte Esterase Negative Negative /uL Urine RBC None seen 0 - 3 /hpf Urine Microscopic WBC 2 0-3 /HPF Urine Squamous Epithelial Cells Few <5 /hpf Urine Bacteria None seen None Seen /hpf Urine Mucus Few None Seen Urine Glucose Normal Normal mg/dL Urine Opiates Screen Neg NEGATIVE Urine Fentanyl Screen Neg NEGATIVE Urine Barbiturates Screen Neg NEGATIVE Urine Phencyclidine Screen Neg NEGATIVE Urine Amphetamines Screen Neg NEGATIVE Urine Benzodiazepines Screen Neg NEGATIVE Urine Cocaine Screen Neg NEGATIVE Urine Cannabinoids Screen Neg NEGATIVE Sodium Level 141 136-145 mmol/L Potassium Level 3.8 3.5-5.1 mmol/L Chloride Level 106 98-107 mmol/L Carbon Dioxide Level 25 20-31 mmol/L Anion Gap 10 5-15 Blood Urea Nitrogen 13 9-23 mg/dL Creatinine 1.09 0.700-1.30 mg/dL Glomerular Filtration Rate Calc 84 >90 mL/min BUN/Creatinine Ratio 11.9 10.0-20.0 Serum Glucose 139 H 74-106 mg/dL Hemoglobin A1c 4.9 <5.7 % A1C Calcium Level 9.0 8.7-10.4 mg/dL Total Bilirubin 0.9 0.2-1.0 mg/dL Direct Bilirubin 0.2 <0.3 mg/dL Aspartate Amino Transferase (AST) 24 13-40 U/L Alanine Aminotransferase (ALT) 27 7-40 U/L Alkaline Phosphatase 94 46-116 U/L Total Protein 7.6 5.7-8.2 g/dL Albumin 4.7 3.2-4.8 g/dL Lipase 48 12-53 U/L Stool Occult Blood Negative Negative Stool Occult Blood Sample #3 Negative Imaging: CT abdomen pelvis Impression: 1. No acute abdominopelvic abnormality identified. 2. Incidental findings as detailed. 3. If there is persistent clinical concern for GI bleed, CTA of the abdomen/pelvis may be beneficial in further assessment. Assessment: Abdominal pain Rectal bleeding History of diverticulosis Internal hemorrhoids Plan: Discussed with Dr. Birch Monitor labs Advance diet as tolerated Stool studies pending GI on standby if rectal bleeding worsens, otherwise recommend follow-up outpatient basis for further evaluation as needed Discussed plan with patient and RN Thank you for this consult Date of Service: Apr 26, 2025 Billing Provider: KRISTEN TA Common Visit Codes: CONSULT ONLY Consultation Codes: [id number] CONSULT <45MIN KRISTEN TA Apr 26, 2025 13:58
[2025-04-26] MEDS: GOLYTELY 4L KIT PO ONE (19:05)
[2025-04-26 23:45] VITALS: BP 128/92; PULSE 57; RESP 18; TEMP 97.7; O2SAT 99
[2025-04-27] VITALS (8 sets, daily range): BP systolic 116–129; BP diastolic 72–84; PULSE 48–86; RESP 12–18; TEMP 97.5–98.4; O2SAT 97–100
[2025-04-27] MEDS: MAGNESIUM CITRATE SOLUTION 300 ML BTL PO ONE (06:11)
[2025-04-27] MEDS: GOLYTELY 4L KIT PO ONE (06:12)
[2025-04-27 07:35] LABS: Hematocrit 45.2 % (41.0-53.0); Hemoglobin 15.6 g/dL (13.5-17.5); Mean Corpuscular Hemoglobin 29.5 pg (28.0-32.0); Mean Corpuscular Volume 85.6 fL (80.0-100.0); Nucleated Red Blood Cells % 0.1 %
[2025-04-27 07:42] LABS: Chloride 107 mmol/L (98-107); Potassium 3.8 mmol/L (3.5-5.1); Sodium 142 mmol/L (136-145)
[2025-04-27 07:43] LABS: Anion Gap 9 (5-15); Calcium 9.1 mg/dL (8.7-10.4); Carbon Dioxide 26 mmol/L (20-31)
[2025-04-27 07:48] LABS: BUN/Creatinine Ratio 9.3 (10.0-20.0); Glucose 86 mg/dL (74-106)
[2025-04-27 07:57] LABS: Blood Urea Nitrogen 8 mg/dL (9-23)
--- NOTE | 2025-04-27 12:30 | DVHPN2 ---
Progress Note Date Seen: Apr 27, 2025 Medical Necessity Reason Pt with a Central, PICC or Fol: No Subjective Patient reports: No new complaints Review of Systems: HEENT:Normal, CVS:Normal, RESPIRATORY:Normal, GI:Normal, :Normal, MSK:Normal, NEURO:Normal Objective vital signs Vital Sign Date Time Temp Pulse Resp B/P (MAP) Pulse Ox O2 Delivery O2 Flow Rate FiO2 04/27/25 09:00 97.6 51 16 122/84 (97) 97 97.6 04/27/25 07:30 Room Air* 0 21 Total Intake and Output 04/26/25 04/26/25 04/27/25 14:59 22:59 06:59 Intake Total 360 ml 180 ml 360 ml Balance 360 ml 180 ml 360 ml medications Current Medications Medications Dose Ordered Sig/Edgardo Route Start Time Stop Time Status Last Admin Dose Admin Sodium Chloride 10 ml Q8HR IV 04/25/25 22:00 04/27/25 06:11 10 ML Sodium Chloride 1,000 ml @ 60 mls/hr [id number] IV 04/25/25 21:00 04/27/25 06:12 60 MLS/HR Ondansetron HCl 4 mg Q4HP PRN IV 04/25/25 21:00 Pantoprazole Sodium 40 mg DAILY IV 04/26/25 10:00 04/27/25 09:53 40 MG Examination: GENERAL:Normal, HEENT:Normal, NECK:Normal, LUNGS:Normal, CVS:Normal, ABDOMEN:Normal, MSK:Normal, SKIN:Normal, NEURO:Normal, :Normal laboratory and microbiology Laboratory Tests 04/27/25 06:49 Test 04/27/25 06:49 Range/Units Serum Glucose 86 74-106 mg/dL Microbiology Date/Time Source Procedure Growth Status 04/25/25 12:53 Stool Stool Culture - Preliminary Resulted 04/25/25 12:53 Stool Shiga Toxin I & II - Final Resulted 04/25/25 12:53 Stool Clostridium difficile Toxin Assay - Final Resulted Problem List/Assessment/Plan Problem List/Assessment/Plan #1 gi bleed: ivf, endoscopy today, cbc #2 obesity #3 hyperlipidemia #4 h/o colon polyps Plan discussed with: Patient My Orders My Orders Orders - DONALD JOHNSON MD Procedure Category Date Status Time Complete Blood Count LAB 04/28/25 Verified 06:00 Date of Service: Apr 27, 2025 Billing Provider: DONALD JOHNSON MD Common Visit Codes: [id number] INP/OBS CARE(HIGH) DONALD JOHNSON MD Apr 27, 2025 12:30
[2025-04-27] MEDS: LIDOCAINE VISCOUS 2% 15ML UD ONE (13:30)
[2025-04-27] MEDS ORDERED: fentaNYL CITRATE 100 MCG/2 ML VL ONE (13:32)
[2025-04-27] MEDS ORDERED: MIDAZOLAM HCL 2MG/2ML 2ml VIAL (1mg/ml) ONE (13:32)
[2025-04-27] MEDS ORDERED: PROPOFOL 10 MG/ML 20 ML IV ONE (13:33)
[2025-04-27] MEDS ORDERED: KETAMINE 50mg/ML 1ml syringe ONE (13:36)
--- NOTE | 2025-04-27 14:01 | DVHOP2 ---
Operative Report DATE OF OPERATION: 04/27/25 PROCEDURE: Upper Endoscopy with biopsy. PREOPERATIVE INDICATION: The patient is a 49 -year-old male undergoing endoscopy for GERD and GI bleed POSTOPERATIVE DIAGNOSES: 1. 1 cm sliding-type hiatal hernia with slightly irregular squamocolumnar junction no significant erosive esophagitis 2. Mild gastritis otherwise normal examination up to the 2nd and 3rd part of the duodenal with good bile drainage and no fresh or old blood in the upper GI tract PROCEDURE PERFORMED BY: Abdelrahman Birch GI NURSE: Melvina SCOPE: Olympus videoendoscope. ASA CLASS: 2. PREOPERATIVE MEDICATIONS: Mac Dr. Cady andujar PROCEDURE IN DETAIL: After obtaining an informed consent, the patient was placed on left lateral decubitus position. The patient was then sedated with the above medications. A bite block was placed between his teeth. The endoscope was then passed through the oropharynx, into the esophagus, and through the stomach and pylorus up to the second and third part of the duodenum. The endoscope was then withdrawn. The 2nd and 3rd part of the duodenum and the duodenal bulb were normal. Duodenal biopsies were obtained The pre-pyloric area antrum and body showed minimal gastritis. Gastric biopsies were obtained On retroflexion the fundus cardia and angularis were normal. The endoscope was then withdrawn into distal esophagus Patient had a 0.5-1 cm sliding-type hiatal hernia with no significant erosive esophagitis. The remaining distal and proximal esophagus and oropharynx were unremarkable The patient tolerated the procedure well without difficulty. COMPLICATIONS : None SPECIMENS: Duodenal biopsies Gastric biopsies DISPOSITION: Transfer back to the floor Stable PLAN: 1. Await for biopsy result 2. Will place pt on Protonix p.o. daily 3. Resume GI soft diet advance as tolerated 4. Outpatient follow up with me in 4-6 weeks to review results and discuss further management ABDELRAHMAN BIRCH MD Apr 27, 2025 14:01
--- NOTE | 2025-04-27 14:05 | DVHOP2 ---
Operative Report DATE OF OPERATION: 04/27/25 PROCEDURE: Colonoscopy with biopsy. PREOPERATIVE INDICATION: The patient is a 49 -year-old male undergoing colonoscopy for evaluation of recurrent rectal bleeding POSTOPERATIVE DIAGNOSES: 1. Patient had 4-5 diminutive 1 mm benign-hyperplastic appearing rectosigmoid polyps were seen and removed by cold biopsy forceps and the specimens were retrieved 2. Trace to 1+ internal hemorrhoids otherwise completely normal colonoscopy examination up to the cecum and terminal ileum with no fresh or old blood in the lower GI tract, normal liquid brown stool PROCEDURE PERFORMED BY: Abdelrahman Birch M.D. SCOPE: Olympus videocolonoscope. ASA CLASS: 2. PREOPERATIVE MEDICATIONS: Mac sedation, Dr. Lazar PROCEDURE IN DETAIL: After obtaining an informed consent, the patient was placed on left lateral decubitus position. He was then sedated with the above medications. A rectal examination was performed that was normal. The colonoscope was then passed through the anus into the rectosigmoid and through the descending, transverse, and ascending colon up to the cecum with visualization of the appendiceal orifice, base of the cecum and the ileocecal valve. The colonoscope was then withdrawn. The distal 5-10 cm of the terminal ileum were normal There was no fresh or old blood in the lower GI tract. Patient had normal liquid brown stool that was aspirated There was no clear-cut diverticular disease, no masses or colitis. Patient had 4-5 diminutive 1 mm hyperplastic type rectosigmoid excrescences that were removed by cold biopsy forceps On retroflexion and straight on view the patient had trace to 1+ internal hemorrhoids that were not significantly inflamed The patient tolerated the procedure well without difficulty. WITHDRAWAL TIME: 6 minutes QUALITY OF THE PREP: [place] Bowel Prep score: 9. COMPLICATIONS : None SPECIMENS: Sigmoid polyps DISPOSITION: Transfer back to the floor Stable PLAN: 1. Repeat colonoscopy in 5-7 years 2. Resume GI soft diet advance as tolerated 3. Local anorectal hemorrhoidal care 4. Avoid aspirin NSAIDs smoking alcohol 5. Outpatient follow up with me in 4-6 weeks to review results and discuss further management ABDELRAHMAN BIRCH MD Apr 27, 2025 14:05
[2025-04-27] MEDS: ONDANSETRON HCL 4 MG/2 ML VIAL IV PRN (15:22)
[2025-04-28 05:00] VITALS: BP 105/71; PULSE 58; RESP 18; TEMP 97.6; O2SAT 97
[2025-04-28 08:00] VITALS: PULSE 57; RESP 18; O2SAT 97
[2025-04-28 08:02] LABS: Hematocrit 45.2 % (41.0-53.0); Hemoglobin 15.2 g/dL (13.5-17.5); Mean Corpuscular Hemoglobin 28.8 pg (28.0-32.0); Mean Corpuscular Volume 85.7 fL (80.0-100.0); Nucleated Red Blood Cells % 0.1 %
[2025-04-28 13:00] VITALS: BP 116/81; PULSE 83; RESP 17; TEMP 97.9; O2SAT 99
[2025-04-28] MEDS ORDERED: HYDR25SU21 PR (15:34)
[2025-04-28] MEDS ORDERED: PANT40TA2 PO (15:34)
--- NOTE | 2025-04-28 15:36 | DVHDS2 ---
Discharge Summary Date of Admission Apr 25, 2025 at 20:56 Date of Discharge: Apr 28, 2025 Labs/Diagnostic Data: Laboratory Results Test 04/28/25 06:54 04/27/25 06:49 04/26/25 12:52 04/26/25 03:30 White Blood Count 7.8 10^3/uL (4.4-10.8) Red Blood Count 5.27 10^6/uL (4.5-5.90) Hemoglobin 15.2 g/dL (13.5-17.5) Hematocrit 45.2 % (41.0-53.0) Mean Corpuscular Volume 85.7 fL (80.0-100.0) Mean Corpuscular Hemoglobin 28.8 pg (28.0-32.0) Mean Corpuscular Hemoglobin Concent 33.6 g/dL (32.0-36.0) Red Cell Distribution Width 14.7 % (11.8-14.3) Platelet Count 234 10^3/uL (140-450) Mean Platelet Volume 9.1 fL (6.9-10.8) Neutrophils (%) (Auto) 64.3 % (37.0-80.0) Lymphocytes (%) (Auto) 27.0 % (10.0-50.0) Monocytes (%) (Auto) 7.7 % (0.0-12.0) Eosinophils (%) (Auto) 0.7 % (0.0-7.0) Basophils (%) (Auto) 0.3 % (0.0-2.0) Neutrophils # (Auto) 5.0 10 ^3/uL (1.6-8.6) Lymphocytes # (Auto) 2.1 10 ^3/uL (0.4-5.4) Monocytes # (Auto) 0.6 10 ^3/uL (0-1.3) Eosinophils # (Auto) 0.1 10 ^3/uL (0-0.8) Basophils # (Auto) 0 10 ^3/uL (0-0.2) Nucleated Red Blood Cells 0.1 % Sodium Level 142 mmol/L (136-145) Potassium Level 3.8 mmol/L (3.5-5.1) Chloride Level 107 mmol/L (98-107) Carbon Dioxide Level 26 mmol/L (20-31) Anion Gap 9 (5-15) Blood Urea Nitrogen 8 mg/dL (9-23) Creatinine 0.86 mg/dL (0.700-1.30) Glomerular Filtration Rate Calc 107 mL/min (>90) BUN/Creatinine Ratio 9.3 (10.0-20.0) Serum Glucose 86 mg/dL (74-106) Calcium Level 9.1 mg/dL (8.7-10.4) Prothrombin Time 11.0 sec (9.3-11.8) Prothrombin Time INR 1.04 (0.9-1.15) Activated Partial Thromboplast Time 29.3 SEC (24.5-34.5) Urine Color Yellow (Yellow) Urine Clarity Clear (Clear) Urine pH 5.5 (5.0-9.0) Urine Specific [place] 1.034 (1.001-1.035) Urine Protein Negative (Negative) Urine Ketones Negative (Negative) Urine Blood Negative /uL (Negative) Urine Nitrite Negative (Negative) Urine Bilirubin Negative (Negative) Urine Urobilinogen Normal mg/dL (Negative) Urine Leukocyte Esterase Negative /uL (Negative) Urine RBC None seen /hpf (0 - 3) Urine Microscopic WBC 2 /HPF (0-3) Urine Squamous Epithelial Cells Few /hpf (<5) Urine Bacteria None seen /hpf (None Seen) Urine Mucus Few (None Seen) Urine Glucose Normal mg/dL (Normal) Urine Opiates Screen Neg (NEGATIVE) Urine Fentanyl Screen Neg (NEGATIVE) Urine Barbiturates Screen Neg (NEGATIVE) Urine Phencyclidine Screen Neg (NEGATIVE) Urine Amphetamines Screen Neg (NEGATIVE) Urine Benzodiazepines Screen Neg (NEGATIVE) Urine Cocaine Screen Neg (NEGATIVE) Urine Cannabinoids Screen Neg (NEGATIVE) Test 04/25/25 18:10 04/25/25 12:53 Hemoglobin A1c 4.9 % A1C (<5.7) Total Bilirubin 0.9 mg/dL (0.2-1.0) Direct Bilirubin 0.2 mg/dL (<0.3) Aspartate Amino Transferase (AST) 24 U/L (13-40) Alanine Aminotransferase (ALT) 27 U/L (7-40) Alkaline Phosphatase 94 U/L (46-116) Total Protein 7.6 g/dL (5.7-8.2) Albumin 4.7 g/dL (3.2-4.8) Lipase 48 U/L (12-53) Stool Occult Blood Negative (Negative) Stool Occult Blood Sample #3 (Negative) Other Laboratory Tests 04/28/25 06:54 04/27/25 06:49 Brief Hx & Hospital Course: see dictated note Condition at Discharge: Good Final Diagnosis/Problems List gi bleed Discharge Disposition: Home Discharge Instruct/Medications Diet: Cardiac 2g Na,low cholest Activity: No Restrictions, As Tolerated Follow Up/Referral: [facility] pcp/gi Medications: resume home meds script to pharmacy avoids asa/nsaids Scheduled Atorvastatin Calcium (Atorvastatin Calcium), 10 MG PO DAILY, (Reported) Hydrocortisone Acetate (Anusol-Hc), 1 SUPP SC BID Pantoprazole Sodium Sesquihydr (Pantoprazole Sodium), 40 MG PO DAILY Pantoprazole Sodium Sesquihydr (Protonix), 40 MG PO DAILY Patients Own Medication (Patients Own Medication), 10 MG PO DAILY, (Reported) Scheduled PRN Hydrocortisone Acetate (Anusol-Hc), 1 SUPP SC BID PRN Discharge Statement: "Patient was advised to return to the ER or call 911 if any headaches, dizziness, shortness of breath, chest pain, abdominal pain, bleeding, fevers, or worsening of medical condition. Patient was counseled about treatment plan, medications, possible side effects, patientverbalized understanding. All questions were answered to the best of my ability. This discharge took greater then 30 minutes in planning, reviewing documentation, counseling the patient, and discussing with other team members." ASSESSMENT ASSESSMENT Assessment gi bleed Date of Service: Apr 28, 2025 Billing Provider: DONALD JOHNSON MD Common Visit Codes: 59063-HYO/OBS DISCH DAY >30min DONALD JOHNSON MD Apr 28, 2025 15:36
--- NOTE | 2025-04-28 16:05 | DVHDS ---
DATE OF DISCHARGE: 04/28/2025 HISTORY OF PRESENT ILLNESS: The patient is a 49-year-old gentleman who was admitted with a history of red blood per rectum and abdominal discomfort. He has history of hyperlipidemia. HOSPITAL COURSE: The patient had CT of abdomen and pelvis that showed no acute disease. The patient was seen in GI consult by Dr. Steph Birch. Stool for C. diff was negative. Hemoglobin remained stable. The patient underwent upper and lower endoscopy. Upper endoscopy showed evidence of mild gastritis with hiatal hernia. The patient underwent colonoscopy that had small polyps that were removed. He also had 1+ internal hemorrhoids. The patient now is being discharged home to resume his home medications and is to avoid aspirin and nonsteroidals. He is also to be on Anusol HC suppository 1 b.i.d. p.r.n. along with Protonix 40 mg daily. He will follow up with the GI clinic and the primary care. FINAL DIAGNOSES: * GI bleeding with gastritis and internal hemorrhoids. * Obesity. * Hyperlipidemia. Time spent in discharge planning and review of plan with the patient and nursing was 39 minutes. MD KELLEY Grider/KULDIP TID: [id number] RECEIPT: [id number]
[2025-04-28 16:39] VITALS: BP 117/86; PULSE 62; RESP 16; TEMP 97.9; O2SAT 100
--- NOTE | 2025-04-28 22:22 | DVHPN2 ---
Progress Note - Dictate Date Seen: Apr 28, 2025 (Late entryTime of visit 5pm) Medical Necessity Reason Pt with a Central, PICC or Fol: No Subjective No new complaints Patient has no further GI bleeding vital signs Vital Sign Date Time Temp Pulse Resp B/P (MAP) Pulse Ox O2 Delivery O2 Flow Rate FiO2 04/28/25 16:39 97.9 62 16 100 04/28/25 13:00 116/81 (93) 04/28/25 08:00 Room Air* 0 21 Total Intake and Output 04/27/25 04/27/25 04/28/25 15:00 23:00 07:00 Intake Total 50 ml 360 ml 1020 ml Balance 50 ml 360 ml 1020 ml objective General: NAD, AAOX3 Chest: lung dupree clear to auscultation Heart: RRR, no murmur Abdomen: non-distended, no tenderness to palpation, +BS laboratory and microbiology Laboratory Tests 04/28/25 06:54 04/27/25 06:49 Test 04/27/25 06:49 Range/Units Serum Glucose 86 74-106 mg/dL Problems(with codes): (1) History of colonic polyps (2) Lower GI bleed (3) Diverticulosis (4) GI bleed Prognosis Plan EGD and colon finding was reviewed with the patient Possible hemorrhoidal bleeding that has resolved Currently patient is hemodynamically stable with no active bleeding He is tolerating diet Discharge planning is in progress Outpatient follow up with GI Services to review results and discuss further management Plan discussed with: Patient ABDELRAHMAN SALCEDO MD Apr 28, 2025 22:22
== END 2025-04-28 17:07 | disposition home or self-care (01) | DRG 393 ==
LOC: ER 17:49 → OVERFLOW 20:56 → WEST WING 04-26 23:35
PROVIDERS: ADMIT Internal Medicine; ATTEND Internal Medicine
PROC: 0DBN8ZX Excision of Sigmoid Colon, Via Natural or Artificial Opening Endoscopic, Diagnostic (ICD-10-PCS; 2025-04-27)
PROC: 0DB98ZX Excision of Duodenum, Via Natural or Artificial Opening Endoscopic, Diagnostic (ICD-10-PCS; principal; 2025-04-27 13:32)
PROC: 0DB68ZX Excision of Stomach, Via Natural or Artificial Opening Endoscopic, Diagnostic (ICD-10-PCS; 2025-04-27 13:32)
DX: K64.8 Other hemorrhoids (principal); K29.71 Gastritis, unspecified, with bleeding; K44.9 Diaphragmatic hernia without obstruction or gangrene; E66.9 Obesity, unspecified; K21.9 Gastro-esophageal reflux disease without esophagitis; Z68.34 Body mass index [BMI] 34.0-34.9, adult; E78.5 Hyperlipidemia, unspecified; Z79.899 Other long term (current) drug therapy; Z86.0100 Personal history of colon polyps, unspecified; Z90.49 Acquired absence of other specified parts of digestive tract
CPT/HCPCS: 36415; 74176; 80048; 80076; 80307; 81001; 82270; 83036; 83690; 85025; 85610; 85730; 86850; 86900; 86901; 87045; 87427; 87493; G0378; J1100; J2250; J2405; J2470; J2704